=== PATIENT | male | born 1950 | race African-American/Black ===

== ENCOUNTER 2018-07-23 02:51 | Inpatient (IN) | payer MEDICARE, MEDICAID ==
[~2018-07-23] VITALS: Ht 180.3 cm; Wt 68.0 kg
[2018-07-23 08:10] VITALS: BP 123/82
[2018-07-23] MEDS ORDERED: FLOMAX0.4 MG ORAL (09:35)
[2018-07-23] MEDS ORDERED: HYDROCHLOROTH12.5 M2 ORAL (09:36)
[2018-07-23] MEDS ORDERED: LISINOPRIL-HCT1 EACH ORAL (09:36)
[2018-07-23] MEDS ORDERED: Mylanta II UD 30ml ORAL PRN (10:00)
[2018-07-23] MEDS ORDERED: Albuterol/Ipratropium 3ml neb HHN PRN (10:00)
--- NOTE | 2018-07-23 10:06 | Consultation ---
History of Present Illness General Date patient seen: Jul 23, 2018 Time patient seen: 08:00 Chief Complaint: pain R ankle Referring physician: dr Carver Reason for Consultation: inpatient management Present Illness HPI 57 years old male with past medical history significant for hypertension, BPH presented to [facility] as a direct admission from [facility]. Patient came to ED for pain in the left ankle area. Upon evaluation in [place] vital signs were stable ,no fever. Patient exhibited mild leukocytosis with WBC 12 , hemoglobin and hematocrit remain stable ; chest x-ray with no acute cardiopulmonary disease ; EKG with sinus rhythm, no acute ischemic changes ultrasound of the right lower extremity apparently was done on last week and was negatiev fro acute DVT. patient was given dose of Vanco and Zosyn and transferred to [facility] for further management with diagnosis of cellulitis patient by himself unable to remember when the symptoms started he denied trauma or injury to the leg he stated that he may had worn uncomfortable shoe he denies hx of diabetes No ED report from [place] present with papers Allergies: Coded Allergies: No Known Allergies (Unverified , 07/23/18) Medication History Scheduled Hydrochlorothiazide* (Hydrochlorothiazide*), 12.5 MG ORAL DAILY, (Reported) Lisinopril/Hydrochlorothiazide 10-12.5 Mg Tab (Lisinopril-Hctz 10-12.5 Mg Tab), 1 TAB ORAL DAILY, (Reported) Tamsulosin HCl (Flomax), 0.4 MG ORAL DAILY, (Reported) Patient History History Provided By: Patient Healthcare decision maker Resuscitation status Full Code Advanced Directive on File Past Medical/Surgical History Past Medical/Surgical History: (1) BPH (benign prostatic hyperplasia) (2) HTN (hypertension) Review of Systems Constitutional: Reports: no symptoms Eye: Reports: no symptoms ENT: Reports: no symptoms Respiratory: Reports: no symptoms Cardiovascular: Reports: no symptoms, other - HTN Gastrointestinal: Reports: no symptoms Genitourinary: Reports: other - BPH, diff voiding Musculoskeletal: Reports: other - pain R ankle Skin: Reports: see HPI Psychiatric: Reports: no symptoms Neurological: Reports: no symptoms Endocrine: Reports: no symptoms Hematologic/Lymphatic: Reports: no symptoms Physical Exam General Appearance: no apparent distress, alert Lines, tubes and drains: peripheral HEENT: normocephalic, atraumatic, anicteric, mucous membranes moist, PERRL Neck: non-tender, normal alignment, supple Respiratory/Chest: lungs clear, no respiratory distress, no accessory muscle use Cardiovascular/Chest: normal rate, no JVD Abdomen: normal bowel sounds, non tender, soft Extremities: normal range of motion, normal inspection Skin Exam: warm/dry, other - LLE ankle area with erythema, TTP. edema, L ankle ucler with opening blister draining yellowish fluid Neurologic: no motor/sensory deficits, alert, oriented x 3, responsive Musculoskeletal: normal muscle bulk Last 24 Hour Vital Signs Date Time Temp Pulse Resp B/P (MAP) Pulse Ox O2 Delivery O2 Flow Rate FiO2 07/23/18 09:23 Room Air 07/23/18 08:10 97.7 79 21 123/82 (96) 97 97.7 07/23/18 08:06 Room Air Height (Feet): 5 Height (Inches): 11.00 Weight (Pounds): 132 Medications Current Medications Medications (Trade) Dose Ordered Sig/Anjana Route PRN Reason Start Time Stop Time Status Last Admin Dose Admin Piperacillin Sod/ Tazobactam Sod 3.375 gm/Dextrose 110 ml @ 27.5 mls/hr Q8HR IVPB 07/23/18 10:30 07/30/18 10:29 Vancomycin HCl (Vanco rx to dose) 1 ea DAILY PRN MISC Per rx protocol 07/23/18 09:45 08/22/18 09:44 UNV Vancomycin HCl/ Dextrose 250 ml @ 166.667 mls/hr ONCE ONCE IVPB 07/23/18 14:30 07/23/18 15:59 Assessment/Plan Assessment/Plan ASSESSMENT LLE cellulitis L ankle ulcer with blister pain L ankle HTN BPH PLAN OF CARE Med Surg floor Venous duplex bilateral lower extremity IV Vanco and Zosyn culture wound ID eval Wound care per protocol X ray L ankle Pain management PT eval for safe ambulation Blood pressure management with the YANETH Continue Flomax, monitor for voiding DVT prophylaxis check HgA1c ( patient denied hx of diabetes) Supportive care case discussed and evaluated by supervising physician Yesica Hale NP Jul 23, 2018 10:06
[2018-07-23 10:14] LABS: BASOPHILS % (AUTO) 1.6 % (0.0-2.0); HEMATOCRIT 33.6 % (42.0-52.0); HEMOGLOBIN 10.8 G/DL (14.2-18.0); LYMPHOCYTES % (AUTO) 10.3 % (20.0-45.0); MEAN CORPUSCULAR VOLUME 91 FL (80-99); MONOCYTES % (AUTO) 8.6 % (1.0-10.0); NEUTROPHILS % (AUTO) 77.4 % (45.0-75.0); PLATELET COUNT 209 K/UL (150-450); RED BLOOD COUNT 3.68 M/UL (4.70-6.10); WHITE BLOOD COUNT 12.3 K/UL (4.8-10.8)
[2018-07-23 10:30] LABS: ANION GAP 6 mmol/L (5-15); BLOOD UREA NITROGEN 9 mg/dL (7-18); CALCIUM 9.2 MG/DL (8.5-10.1); CARBON DIOXIDE 28 MMOL/L (21-32); CHLORIDE 103 MMOL/L (98-107); POTASSIUM 3.8 MMOL/L (3.5-5.1); SODIUM 137 MMOL/L (136-145)
[2018-07-23] MEDS: Piperacillin/Tazobactam 3.375 GM in D5W 110 ML IVPB SCH ×2 (10:58→21:10)
--- NOTE | 2018-07-23 11:09 | Diagnostic Imaging Report ---
EXAM: XR Left Ankle Complete, 3 or More Views CLINICAL HISTORY: PAIN TECHNIQUE: Frontal, lateral and oblique views of the left ankle. COMPARISON: No relevant prior studies available. FINDINGS: Bones/joints: Unremarkable. No visible displaced ankle fracture or dislocation. Ankle mortise and talar dome appear unremarkable. Mild degenerative joint space loss at the ankle joint. Incidental note of small Achilles tendon enthesophyte and plantar calcaneal bone spur. Soft tissues: Bimalleolar soft tissue swelling. No radiodense foreign bodies. No soft tissue gas lucencies. IMPRESSION: 1. Bimalleolar soft tissue swelling. 2. Mild degenerative changes at the ankle joint.
[2018-07-23 11:45] VITALS: BP 109/64
[2018-07-23] MEDS: Vancomycin 1gm/D5W 275ml IVPB SCH ×2 (13:00)
[2018-07-23] MEDS ORDERED: Vancomycin 1250mg/D5W 250ml IVPB ONE (14:30)
[2018-07-23] MEDS: Norco 5mg/325mg tab ORAL PRN ×2 (15:13→22:31)
[2018-07-23 15:52] VITALS: BP 99/52
--- NOTE | 2018-07-23 16:41 | History & Physical ---
History and Physical History & Physicial Dictated for Int Med-Dr Carver no. [id number]. Tommy Grimaldo MD Jul 23, 2018 16:41
--- NOTE | 2018-07-23 19:45 | History and Physical Report ---
DATE OF ADMISSION: 07/23/2018 CHIEF COMPLAINT: The patient is a 67-year-old male, who presents with chief complaint of left leg pain and swelling. HISTORY OF PRESENT ILLNESS: Began two to three months previously. The patient began to experience left lower leg swelling and pain. The patient presented to [facility] emergency room. The patient was found to have ulcer of the left ankle. The patient also was noted to have erythema and swelling of the left lower extremity. The patient is admitted for cellulitis and ulceration of the left lower extremity. PAST MEDICAL HISTORY: Significant for 1. Chronic low back pain. 2. Hypertension. 3. Benign prostatic hypertrophy. PAST SURGICAL HISTORY: The patient denies. CURRENT MEDICATIONS: 1. Hydrochlorothiazide 12.5 mg one tablet p.o. daily. 2. Lisinopril/hydrochlorothiazide 10/12.5 mg one tablet p.o. daily. 3. Flomax 0.4 mg p.o. daily. ALLERGIES: No known drug allergies. SOCIAL HISTORY: The patient is currently homeless and lives in a skilled nursing. The patient admits to tobacco use. The patient denies alcohol use. REVIEW OF SYSTEMS: CONSTITUTIONAL: The patient denies weight loss or weight gain. The patient denies fevers or chills. HEENT: The patient denies ear or throat pain. The patient denies headache. CARDIOVASCULAR: The patient denies palpitations or chest pain. CHEST: The patient denies wheeze or shortness of breath. ABDOMEN: The patient denies nausea, vomiting, diarrhea, or constipation. GENITOURINARY: The patient denies dysuria or increased frequency of urination. NEUROMUSCULAR: The patient denies seizures or generalized weakness. PHYSICAL EXAMINATION: GENERAL: The patient is thin-appearing male, in no apparent distress. VITAL SIGNS: Temperature 97.7 degrees, respirations 21, pulse 79, and blood pressure 123/82. HEENT: Eyes, pupils equal and responsive to light and accommodation. Extraocular movements are intact. NECK: Supple without lymphadenopathy. CHEST: Lungs are clear to auscultation bilaterally without wheezes or rales. CARDIOVASCULAR: Regular rate. S1 and S2 are normal without murmurs, rubs, or gallops. ABDOMEN: Soft, nontender, nondistended. Positive bowel sounds. No evidence of hepatosplenomegaly. Currently, no rebound or guarding noted. EXTREMITIES: Presence of ulceration in the left ankle with erythema extending from the foot to the mid calf. The ulcer is appears to be a stage II. LABORATORY AND DIAGNOSTIC DATA: WBC 12.3, hemoglobin 10.8, hematocrit 33.6, and platelets 209,000. Sodium 137, potassium 3.8, chloride 103, CO2 20, BUN 9, creatinine 1.0 and glucose 122. ASSESSMENT: This is a 67-year-old male 1. Left lower extremity pain. 2. Left leg cellulitis. 3. Stage II ulcer of the left leg. 4. Chronic low back pain. 5. Hypertension. 6. Benign prostatic hypertrophy. TREATMENT: 1. Left leg pain/cellulitis/stage II ulcer. The patient has been started empirically on intravenous vancomycin and Zosyn. A wound care consultation has been obtained. We will follow recommendations of wound care. 2. Hypertension. Continue lisinopril and hydrochlorothiazide as above. 3. Benign prostatic hypertrophy. Continue Flomax as above. Tommy Grimaldo M.D. DR: ELICIA JOB#: [id number] CC:
[2018-07-23 20:02] VITALS: BP 131/80
[2018-07-23] MEDS: Tamsulosin 0.4mg cap ORAL SCH (21:10)
[2018-07-23] MEDS: Heparin 5000 units/ml inj SUBQ SCH (21:11)
[2018-07-23 23:50] VITALS: BP 100/60
[2018-07-24] MEDS ORDERED: Vancomycin 1gm/D5W 275ml IVPB SCH ×2 (02:00)
[2018-07-24] MEDS: Vancomycin 1gm/D5W 275ml IVPB SCH ×4 (02:29→13:27)
[2018-07-24 04:13] VITALS: BP 129/82
[2018-07-24] MEDS: Piperacillin/Tazobactam 3.375 GM in D5W 110 ML IVPB SCH (06:13)
--- NOTE | 2018-07-24 08:07 | Pulmonology Progress Note ---
Assessment/Plan Assessment/Plan ASSESSMENT LLE cellulitis L ankle ulcer with blister pain L ankle HTN BPH PLAN OF CARE Med Surg floor Venous duplex bilateral lower extremity IV Vanco and Zosyn culture wound ID eval Wound care per protocol X ray L ankle with bimalleolar soft tissue swelling and mild degenerative changes at the ankle joint. Pain management PT eval for safe ambulation Blood pressure management with the YANETH Continue Flomax, monitor for voiding DVT prophylaxis check [id number] stable lipid panel low TSH, check free T4 and T3 Supportive care case discussed and evaluated by supervising physician Subjective Allergies: Coded Allergies: No Known Allergies (Unverified , 07/23/18) Subjective afebrile, leukocytosis resolved c/o pain L ankle Objective Last 24 Hour Vital Signs Date Time Temp Pulse Resp B/P (MAP) Pulse Ox O2 Delivery O2 Flow Rate FiO2 07/24/18 04:13 97.9 79 18 129/82 (98) 100 97.9 07/23/18 23:50 97.7 89 18 100/60 (73) 96 97.7 07/23/18 23:30 98.4 07/23/18 22:31 98.4 07/23/18 22:16 Room Air 07/23/18 20:02 98.4 84 20 131/80 (97) 99 98.4 07/23/18 15:52 97.9 62 20 99/52 (68) 97 97.9 07/23/18 11:45 97.7 77 19 109/64 (79) 97 97.7 07/23/18 09:23 Room Air 07/23/18 08:10 97.7 79 21 123/82 (96) 97 97.7 07/23/18 08:06 Room Air Intake and Output 07/23/18 07/24/18 19:00 07:00 Intake Total 1165.0 ml 385.000 ml Output Total 600 ml 600 ml Balance 565.0 ml -215.000 ml Intake Oral 780 ml IV Total 385.0 ml 385.000 ml Output Urine Total 600 ml 600 ml # Voids 1 2 Objective General Appearance: no apparent distress, alert Lines, tubes and drains: peripheral HEENT: normocephalic, atraumatic, anicteric, mucous membranes moist, PERRL Neck: non-tender, normal alignment, supple Respiratory/Chest: lungs clear, no respiratory distress, no accessory muscle use Cardiovascular/Chest: normal rate, no JVD Abdomen: normal bowel sounds, non tender, soft Extremities: normal range of motion, normal inspection Skin Exam: warm/dry, LLE ankle area with erythema, TTP. edema, ulcer with opening blister draining yellowish fluid Neurologic: no motor/sensory deficits, alert, oriented x 3, responsive Musculoskeletal: normal muscle bulk Laboratory Tests 07/23/18 09:54: White Blood Count 12.3H, Red Blood Count 3.68L, Hemoglobin 10.8L, Hematocrit 33.6L, Mean Corpuscular Volume 91, Mean Corpuscular Hemoglobin 29.5, Mean Corpuscular Hemoglobin Concent 32.3, Red Cell Distribution Width 15.0H, Platelet Count 209, Mean Platelet Volume 7.9, Neutrophils (%) (Auto) 77.4H, Lymphocytes (%) (Auto) 10.3L, Monocytes (%) (Auto) 8.6, Eosinophils (%) (Auto) 2.0, Basophils (%) (Auto) 1.6, Sodium Level 137, Potassium Level 3.8, Chloride Level 103, Carbon Dioxide Level 28, Anion Gap 6, Blood Urea Nitrogen 9, Creatinine 1.0, Estimat Glomerular Filtration Rate > 60, Glucose Level 122H, Calcium Level 9.2 Current Medications Medications (Trade) Dose Ordered Sig/Anjana Route PRN Reason Start Time Stop Time Status Last Admin Dose Admin Acetaminophen (Tylenol) 650 mg Q4H PRN ORAL Mild Pain (Pain Scale 1-3) 07/23/18 10:00 08/22/18 09:59 Acetaminophen/ Hydrocodone Bitart ([place] 5/325) 1 tab Q4H PRN ORAL Moderate Pain (Pain Scale 4-6) 07/23/18 10:45 07/30/18 10:44 07/23/18 22:31 Al Hydroxide/Mg Hydroxide (Mylanta II) 30 ml Q6H PRN ORAL dyspepsia 07/23/18 10:00 08/22/18 09:59 Albuterol/ Ipratropium (Albuterol/ Ipratropium) 3 ml Q4H PRN HHN Shortness of Breath 07/23/18 10:00 07/28/18 09:59 Dextrose (Dextrose 50%) 25 ml STAT PRN IV Hypoglycemia 07/23/18 10:00 08/22/18 09:59 Dextrose (Dextrose 50%) 50 ml STAT PRN IV Hypoglycemia 07/23/18 10:00 08/22/18 09:59 Heparin Sodium (Porcine) (Heparin 5000 units/ml) 5,000 units EVERY 12 HOURS SUBQ 07/23/18 21:00 08/22/18 20:59 07/23/18 21:11 Lisinopril (Zestril) 10 mg DAILY ORAL 07/24/18 09:00 08/23/18 08:59 Piperacillin Sod/ Tazobactam Sod 3.375 gm/Dextrose 110 ml @ 27.5 mls/hr Q8HR IVPB 07/23/18 10:30 07/30/18 10:29 07/24/18 06:13 Tamsulosin HCl (Flomax) 0.4 mg BEDTIME ORAL 07/23/18 21:00 08/22/18 20:59 07/23/18 21:10 Temazepam (Restoril) 15 mg HSPRN PRN ORAL Insomnia 07/23/18 21:00 07/30/18 20:59 Vancomycin HCl (Vanco rx to dose) 1 ea DAILY PRN MISC Per rx protocol 07/23/18 09:45 08/22/18 09:44 Vancomycin HCl 1 gm/Dextrose 275 ml @ 183.708 mls/hr Q12H IVPB 07/23/18 13:00 07/28/18 12:59 07/24/18 02:29 Yesica Hale NP Jul 24, 2018 08:07
[2018-07-24 08:36] LABS: BASOPHILS % (AUTO) 1.1 % (0.0-2.0); EOSINOPHILS % (AUTO) 2.2 % (0.0-3.0); HEMATOCRIT 34.5 % (42.0-52.0); HEMOGLOBIN 11.1 G/DL (14.2-18.0); LYMPHOCYTES % (AUTO) 12.3 % (20.0-45.0); MEAN CORPUSCULAR VOLUME 91 FL (80-99); MONOCYTES % (AUTO) 10.3 % (1.0-10.0); NEUTROPHILS % (AUTO) 74.1 % (45.0-75.0); PLATELET COUNT 231 K/UL (150-450); RED BLOOD COUNT 3.77 M/UL (4.70-6.10); RED CELL DISTRIBUTION WIDTH 14.8 % (11.6-14.8); WHITE BLOOD COUNT 10.1 K/UL (4.8-10.8)
[2018-07-24 09:16] LABS: ALANINE AMINOTRANSFERASE 19 U/L (12-78); ALBUMIN 2.6 G/DL (3.4-5.0); ALBUMIN/GLOBULIN RATIO 0.6 (1.0-2.7); ALKALINE PHOSPHATASE 69 U/L (46-116); ANION GAP 3 mmol/L (5-15); ASPARTATE AMINO TRANSFERASE 11 U/L (15-37); BILIRUBIN,TOTAL 0.5 MG/DL (0.2-1.0); BLOOD UREA NITROGEN 6 mg/dL (7-18); CARBON DIOXIDE 30 MMOL/L (21-32); CHLORIDE 105 MMOL/L (98-107); CHOLESTEROL 113 MG/DL (< 200); HDL CHOLESTEROL 42 MG/DL (40-60); SODIUM 138 MMOL/L (136-145); TRIGLYCERIDES 84 MG/DL (30-150)
[2018-07-24] MEDS ORDERED: Tubing IV Secondary IV ONE (09:35)
[2018-07-24] MEDS ORDERED: NS 275ml ONE (09:35)
[2018-07-24] MEDS: Lisinopril 10mg tab ORAL SCH (10:05)
[2018-07-24] MEDS: Norco 5mg/325mg tab ORAL PRN ×2 (10:05→17:55)
[2018-07-24] MEDS: Heparin 5000 units/ml inj SUBQ SCH ×2 (10:06→20:13)
[2018-07-24 12:00] VITALS: BP 121/80
--- NOTE | 2018-07-24 14:06 | Consultation ---
History of Present Illness General Date patient seen: Jul 24, 2018 Referring physician: dr Carver Reason for Consultation: inpatient management Present Illness HPI 67 y/o M with hx of HTN, BPH, chronic low back pain presents as a direct admission from [place] on 07/23 for pain and swelling in L ankle. Patient found to have WBC 12 and ulcer on L ankle. ID consulted for cellulitis. Patient refers wearing uncomfortable shoes. Patient was started on IV Vanco and Zosyn. Denies trauma/injury to leg Allergies: Coded Allergies: No Known Allergies (Unverified , 07/23/18) Medication History Scheduled Hydrochlorothiazide* (Hydrochlorothiazide*), 12.5 MG ORAL DAILY, (Reported) Lisinopril/Hydrochlorothiazide 10-12.5 Mg Tab (Lisinopril-Hctz 10-12.5 Mg Tab), 1 TAB ORAL DAILY, (Reported) Tamsulosin HCl (Flomax), 0.4 MG ORAL DAILY, (Reported) Patient History Healthcare decision maker Resuscitation status Full Code Advanced Directive on File Patient History Narrative Pmhx: as above Shx: The patient is currently homeless and [facility] a [facility]. The patient admits to tobacco use. The patient denies alcohol use. Fhx: non contributory Review of Systems All Other Systems: negative except mentioned in HPI Physical Exam Physical Exam Narrative GENERAL: The patient is thin-appearing male, in no apparent distress. HEENT: Eyes, pupils equal and responsive to light and accommodation. Extraocular movements are intact. NECK: Supple without lymphadenopathy. CHEST: Lungs are clear to auscultation bilaterally without wheezes or rales. CARDIOVASCULAR: Regular rate. S1 and S2 are normal without murmurs, rubs, or gallops. ABDOMEN: Soft, nontender, nondistended. Positive bowel sounds. No evidence of hepatosplenomegaly. Currently, no rebound or guarding noted. EXTREMITIES: Presence of ulceration in the left ankle with erythema extending from the foot to the mid calf; modedte TTP; +warmth, swelling. The ulcer is appears to be a stage II., purulent discharge; Last 24 Hour Vital Signs Date Time Temp Pulse Resp B/P (MAP) Pulse Ox O2 Delivery O2 Flow Rate FiO2 07/24/18 12:00 97.9 61 19 121/80 (94) 96 97.9 07/24/18 10:05 129/83 07/24/18 09:12 89 20 Room Air 21 07/24/18 09:00 Room Air 07/24/18 04:13 97.9 79 18 129/82 (98) 100 97.9 07/23/18 23:50 97.7 89 18 100/60 (73) 96 97.7 07/23/18 23:30 98.4 07/23/18 22:31 98.4 07/23/18 22:16 Room Air 07/23/18 20:02 98.4 84 20 131/80 (97) 99 98.4 07/23/18 15:52 97.9 62 20 99/52 (68) 97 97.9 Intake and Output 07/23/18 07/24/18 19:00 07:00 Intake Total 1165.0 ml 385.000 ml Output Total 600 ml 600 ml Balance 565.0 ml -215.000 ml Intake Oral 780 ml IV Total 385.0 ml 385.000 ml Output Urine Total 600 ml 600 ml # Voids 1 2 Laboratory Tests Test 07/24/18 07:35 White Blood Count 10.1 K/UL (4.8-10.8) Red Blood Count 3.77 M/UL (4.70-6.10) L Hemoglobin 11.1 G/DL (14.2-18.0) L Hematocrit 34.5 % (42.0-52.0) L Mean Corpuscular Volume 91 FL (80-99) Mean Corpuscular Hemoglobin 29.6 PG (27.0-31.0) Mean Corpuscular Hemoglobin Concent 32.3 G/DL (32.0-36.0) Red Cell Distribution Width 14.8 % (11.6-14.8) Platelet Count 231 K/UL (150-450) Mean Platelet Volume 8.1 FL (6.5-10.1) Neutrophils (%) (Auto) 74.1 % (45.0-75.0) Lymphocytes (%) (Auto) 12.3 % (20.0-45.0) L Monocytes (%) (Auto) 10.3 % (1.0-10.0) H Eosinophils (%) (Auto) 2.2 % (0.0-3.0) Basophils (%) (Auto) 1.1 % (0.0-2.0) Sodium Level 138 MMOL/L (136-145) Potassium Level 4.0 MMOL/L (3.5-5.1) Chloride Level 105 MMOL/L (98-107) Carbon Dioxide Level 30 MMOL/L (21-32) Anion Gap 3 mmol/L (5-15) L Blood Urea Nitrogen 6 mg/dL (7-18) L Creatinine 1.0 MG/DL (0.55-1.30) Estimat Glomerular Filtration Rate > 60 mL/min (>60) Glucose Level 113 MG/DL (74-106) H Hemoglobin A1c 5.7 % (4.3-6.0) Calcium Level 9.0 MG/DL (8.5-10.1) Magnesium Level 2.0 MG/DL (1.8-2.4) Total Bilirubin 0.5 MG/DL (0.2-1.0) Aspartate Amino Transf (AST/SGOT) 11 U/L (15-37) L Alanine Aminotransferase (ALT/SGPT) 19 U/L (12-78) Alkaline Phosphatase 69 U/L (46-116) Total Protein 6.7 G/DL (6.4-8.2) Albumin 2.6 G/DL (3.4-5.0) L Globulin 4.1 g/dL Albumin/Globulin Ratio 0.6 (1.0-2.7) L Triglycerides Level 84 MG/DL (30-150) Cholesterol Level 113 MG/DL (< 200) LDL Cholesterol 51 mg/dL (<100) HDL Cholesterol 42 MG/DL (40-60) Cholesterol/HDL Ratio 2.7 (3.3-4.4) L Prostate Specific Antigen 2.49 ng/mL (0.13-4.0) Thyroid Stimulating Hormone (TSH) 0.337 uiU/mL (0.358-3.740) Height (Feet): 5 Height (Inches): 11.00 Weight (Pounds): 132 Medications Current Medications Medications (Trade) Dose Ordered Sig/Anjana Route PRN Reason Start Time Stop Time Status Last Admin Dose Admin Acetaminophen (Tylenol) 650 mg Q4H PRN ORAL Mild Pain (Pain Scale 1-3) 07/23/18 10:00 08/22/18 09:59 Acetaminophen/ Hydrocodone Bitart ([place] 5/325) 1 tab Q4H PRN ORAL Moderate Pain (Pain Scale 4-6) 07/23/18 10:45 07/30/18 10:44 07/24/18 10:05 Al Hydroxide/Mg Hydroxide (Mylanta II) 30 ml Q6H PRN ORAL dyspepsia 07/23/18 10:00 08/22/18 09:59 Albuterol/ Ipratropium (Albuterol/ Ipratropium) 3 ml Q4H PRN HHN Shortness of Breath 07/23/18 10:00 07/28/18 09:59 Dextrose (Dextrose 50%) 25 ml STAT PRN IV Hypoglycemia 07/23/18 10:00 08/22/18 09:59 Dextrose (Dextrose 50%) 50 ml STAT PRN IV Hypoglycemia 07/23/18 10:00 08/22/18 09:59 Heparin Sodium (Porcine) (Heparin 5000 units/ml) 5,000 units EVERY 12 HOURS SUBQ 07/23/18 21:00 08/22/18 20:59 07/24/18 10:06 Lisinopril (Zestril) 10 mg DAILY ORAL 07/24/18 09:00 08/23/18 08:59 07/24/18 10:05 Piperacillin Sod/ Tazobactam Sod 3.375 gm/Dextrose 110 ml @ 27.5 mls/hr Q8HR IVPB 07/23/18 10:30 07/30/18 10:29 07/24/18 06:13 Tamsulosin HCl (Flomax) 0.4 mg BEDTIME ORAL 07/23/18 21:00 08/22/18 20:59 07/23/18 21:10 Temazepam (Restoril) 15 mg HSPRN PRN ORAL Insomnia 07/23/18 21:00 07/30/18 20:59 Vancomycin HCl (Vanco rx to dose) 1 ea DAILY PRN MISC Per rx protocol 07/23/18 09:45 08/22/18 09:44 Vancomycin HCl 1 gm/Dextrose 275 ml @ 183.708 mls/hr Q12H IVPB 07/23/18 13:00 07/28/18 12:59 07/24/18 13:27 Assessment/Plan Assessment/Plan Abx: IV Vanco 07/23- Zosyn 07/23- Assessment: L ankle ulcer/cellulitis- likely abscess- r/o OM -xray ankle: Bimalleolar soft tissue swelling. Mild degenerative changes at the ankle joint. -wound cx S. aureus MIld leukocytosis, SP -afebrile HTN BPH chronic low back pain Plan: -Continue IV Vancomycin #2 pending S. aureus sensi -d/c Zosyn #2 -MRI L foot/ankle -f/u cx -Monitor CBC/CMP, temperatures -ESR, CRP am -wound care per hospital protocol -Podiatry vania Thank you for this consultation. Will continue to follow along with you. Discussed with EZIO. Brittany Boyce M.D. Jul 24, 2018 14:06
[2018-07-24] MEDS ORDERED: Gadavist 7.5mMol/7.5ml vial IV PRN ×2 (15:45)
[2018-07-24 15:53] VITALS: BP 140/96
--- NOTE | 2018-07-24 16:30 | Internal Med Progress Note ---
Subjective Date of Service: Jul 24, 2018 Physician Name Tommy Grimaldo Attending Physician Checo Carver MD Current Medications Medications (Trade) Dose Ordered Sig/Anjana Route PRN Reason Start Time Stop Time Status Last Admin Dose Admin Acetaminophen (Tylenol) 650 mg Q4H PRN ORAL Mild Pain (Pain Scale 1-3) 07/23/18 10:00 08/22/18 09:59 Acetaminophen/ Hydrocodone Bitart ([place] 5/325) 1 tab Q4H PRN ORAL Moderate Pain (Pain Scale 4-6) 07/23/18 10:45 07/30/18 10:44 07/24/18 10:05 Al Hydroxide/Mg Hydroxide (Mylanta II) 30 ml Q6H PRN ORAL dyspepsia 07/23/18 10:00 08/22/18 09:59 Albuterol/ Ipratropium (Albuterol/ Ipratropium) 3 ml Q4H PRN HHN Shortness of Breath 07/23/18 10:00 07/28/18 09:59 Dextrose (Dextrose 50%) 25 ml STAT PRN IV Hypoglycemia 07/23/18 10:00 08/22/18 09:59 Dextrose (Dextrose 50%) 50 ml STAT PRN IV Hypoglycemia 07/23/18 10:00 08/22/18 09:59 Gadobutrol (Gadavist) 7.5 mmol NOW PRN IV Radiology Procedure 07/24/18 15:45 07/26/18 15:44 Gadobutrol (Gadavist) 7.5 mmol NOW PRN IV Radiology Procedure 07/24/18 15:45 07/26/18 15:44 Heparin Sodium (Porcine) (Heparin 5000 units/ml) 5,000 units EVERY 12 HOURS SUBQ 07/23/18 21:00 08/22/18 20:59 07/24/18 10:06 Lisinopril (Zestril) 10 mg DAILY ORAL 07/24/18 09:00 08/23/18 08:59 07/24/18 10:05 Tamsulosin HCl (Flomax) 0.4 mg BEDTIME ORAL 07/23/18 21:00 08/22/18 20:59 07/23/18 21:10 Temazepam (Restoril) 15 mg HSPRN PRN ORAL Insomnia 07/23/18 21:00 07/30/18 20:59 Vancomycin HCl (Vanco rx to dose) 1 ea DAILY PRN MISC Per rx protocol 07/23/18 09:45 08/22/18 09:44 Vancomycin HCl 1 gm/Dextrose 275 ml @ 183.708 mls/hr Q12H IVPB 07/23/18 13:00 07/28/18 12:59 07/24/18 13:27 Allergies: Coded Allergies: No Known Allergies (Unverified , 07/23/18) ROS Limited/Unobtainable: No Constitutional: Reports: no symptoms HEENT: Reports: no symptoms Cardiovascular: Reports: no symptoms Respiratory: Reports: no symptoms Gastrointestinal/Abdominal: Reports: no symptoms Genitourinary: Reports: no symptoms Neurologic/Psychiatric: Reports: no symptoms Subjective 67 YO M with left leg pain. Now left leg cellulitis and stage II ulcer left ankle. Cover for Int Prasanth-Dr Carver Objective Last Vital Signs Date Time Temp Pulse Resp B/P (MAP) Pulse Ox O2 Delivery O2 Flow Rate FiO2 07/24/18 15:53 97.8 80 18 140/96 (111) 99 97.8 07/24/18 09:12 Room Air 21 General Appearance: WD/WN, no apparent distress, alert EENT: PERRL/EOMI, normal ENT inspection, TMs normal Neck: non-tender, normal alignment, supple, normal inspection Cardiovascular: normal peripheral pulses, normal rate, regularly irregular, no gallop/murmur, no JVD Respiratory/Chest: chest wall non-tender, lungs clear, normal breath sounds, no respiratory distress, no accessory muscle use Abdomen: normal bowel sounds, non tender, soft, no organomegaly, no mass Extremities: normal range of motion, non-tender Neurologic: computing tutor II-XII grossly normal, no motor/sensory deficits Skin: warm/dry, other - erythema left lower leg with ulcer ankle Laboratory Tests Test 07/24/18 07:35 White Blood Count 10.1 K/UL (4.8-10.8) Red Blood Count 3.77 M/UL (4.70-6.10) L Hemoglobin 11.1 G/DL (14.2-18.0) L Hematocrit 34.5 % (42.0-52.0) L Mean Corpuscular Volume 91 FL (80-99) Mean Corpuscular Hemoglobin 29.6 PG (27.0-31.0) Mean Corpuscular Hemoglobin Concent 32.3 G/DL (32.0-36.0) Red Cell Distribution Width 14.8 % (11.6-14.8) Platelet Count 231 K/UL (150-450) Mean Platelet Volume 8.1 FL (6.5-10.1) Neutrophils (%) (Auto) 74.1 % (45.0-75.0) Lymphocytes (%) (Auto) 12.3 % (20.0-45.0) L Monocytes (%) (Auto) 10.3 % (1.0-10.0) H Eosinophils (%) (Auto) 2.2 % (0.0-3.0) Basophils (%) (Auto) 1.1 % (0.0-2.0) Sodium Level 138 MMOL/L (136-145) Potassium Level 4.0 MMOL/L (3.5-5.1) Chloride Level 105 MMOL/L (98-107) Carbon Dioxide Level 30 MMOL/L (21-32) Anion Gap 3 mmol/L (5-15) L Blood Urea Nitrogen 6 mg/dL (7-18) L Creatinine 1.0 MG/DL (0.55-1.30) Estimat Glomerular Filtration Rate > 60 mL/min (>60) Glucose Level 113 MG/DL (74-106) H Hemoglobin A1c 5.7 % (4.3-6.0) Calcium Level 9.0 MG/DL (8.5-10.1) Magnesium Level 2.0 MG/DL (1.8-2.4) Total Bilirubin 0.5 MG/DL (0.2-1.0) Aspartate Amino Transf (AST/SGOT) 11 U/L (15-37) L Alanine Aminotransferase (ALT/SGPT) 19 U/L (12-78) Alkaline Phosphatase 69 U/L (46-116) Total Protein 6.7 G/DL (6.4-8.2) Albumin 2.6 G/DL (3.4-5.0) L Globulin 4.1 g/dL Albumin/Globulin Ratio 0.6 (1.0-2.7) L Triglycerides Level 84 MG/DL (30-150) Cholesterol Level 113 MG/DL (< 200) LDL Cholesterol 51 mg/dL (<100) HDL Cholesterol 42 MG/DL (40-60) Cholesterol/HDL Ratio 2.7 (3.3-4.4) L Prostate Specific Antigen 2.49 ng/mL (0.13-4.0) Thyroid Stimulating Hormone (TSH) 0.337 uiU/mL (0.358-3.740) Microbiology Date/Time Source Procedure Growth Status 07/23/18 10:00 Nasal Nares Nasopharyngeal Culture - Preliminary Resulted 07/23/18 10:00 Foot Left Gram Stain - Final Resulted 07/23/18 10:00 Wound Culture - Preliminary Staphylococcus Aureus Resulted Intake and Output 07/23/18 07/24/18 19:00 07:00 Intake Total 1165.0 ml 385.000 ml Output Total 600 ml 600 ml Balance 565.0 ml -215.000 ml Intake Oral 780 ml IV Total 385.0 ml 385.000 ml Output Urine Total 600 ml 600 ml # Voids 1 2 Assessment/Plan Problem List: (1) Pressure ulcer, stage II (2) HTN (hypertension) Assessment & Plan: Continue lisinopril (3) BPH (benign prostatic hyperplasia) Assessment & Plan: Continue flomax (4) Cellulitis Assessment & Plan: left leg. Continue vanco; D/C zosyn per ID Status: progressing Tommy Grimaldo MD Jul 24, 2018 16:30
[2018-07-24 20:00] VITALS: BP 142/90
[2018-07-24] MEDS: Tamsulosin 0.4mg cap ORAL SCH (20:11)
[2018-07-24 23:38] VITALS: BP 131/79
[2018-07-25] MEDS: Vancomycin 1gm/D5W 275ml IVPB SCH ×6 (02:11→18:24)
[2018-07-25 04:00] VITALS: BP 148/83
[2018-07-25 04:14] LABS: BASOPHILS % (AUTO) 0.9 % (0.0-2.0); EOSINOPHILS % (AUTO) 1.9 % (0.0-3.0); HEMATOCRIT 32.5 % (42.0-52.0); HEMOGLOBIN 10.6 G/DL (14.2-18.0); LYMPHOCYTES % (AUTO) 21.9 % (20.0-45.0); MEAN CORPUSCULAR VOLUME 91 FL (80-99); MONOCYTES % (AUTO) 8.6 % (1.0-10.0); NEUTROPHILS % (AUTO) 66.7 % (45.0-75.0); PLATELET COUNT 258 K/UL (150-450); RED BLOOD COUNT 3.58 M/UL (4.70-6.10); RED CELL DISTRIBUTION WIDTH 14.2 % (11.6-14.8); WHITE BLOOD COUNT 10.5 K/UL (4.8-10.8)
[2018-07-25 04:42] LABS: ANION GAP 7 mmol/L (5-15); BLOOD UREA NITROGEN 10 mg/dL (7-18); CALCIUM 9.1 MG/DL (8.5-10.1); CARBON DIOXIDE 27 MMOL/L (21-32); CHLORIDE 103 MMOL/L (98-107); SODIUM 137 MMOL/L (136-145)
--- NOTE | 2018-07-25 07:45 | Consultation ---
Consult Note Assessment/Plan A/ 1) High suspicion of osteo left ankle 2) Abscess left ankle 3) Cellulitis left ankle 4) Pain left ankle P/ 1) Extensive chart review - MRI pending. changed from routine to stat 2) Cont wound care 3) Cont abx per ID 4) Will likely need I&D pending results of MRI 5) Will follow Thank you Janusz Saldaña DPM Jul 25, 2018 07:45
[2018-07-25 08:00] VITALS: BP 145/84
[2018-07-25] MEDS: Lisinopril 10mg tab ORAL SCH (08:27)
[2018-07-25] MEDS: Norco 5mg/325mg tab ORAL PRN ×2 (08:28→18:23)
[2018-07-25] MEDS: Heparin 5000 units/ml inj SUBQ SCH ×2 (08:34→21:28)
--- NOTE | 2018-07-25 10:28 | Infectious Diseases Prog Note ---
Assessment/Plan Assessment/Plan Abx: IV Vanco 07/23- Zosyn 07/23- Assessment: L ankle ulcer/cellulitis- likely abscess- r/o OM -xray ankle: Bimalleolar soft tissue swelling. Mild degenerative changes at the ankle joint. -wound cx MRSA Mild leukocytosis, SP -afebrile HTN BPH chronic low back pain Plan: -Continue IV Vancomycin #3 -d/c Zosyn #2 -f/u MRI L foot/ankle -f/u cx -Monitor CBC/CMP, temperatures -ESR, CRP am -wound care per hospital protocol -Podiatry eval Thank you for this consultation. Will continue to follow along with you Subjective Allergies: Coded Allergies: No Known Allergies (Unverified , 07/23/18) Subjective No acute events Afebrile Pain controlled Objective Vital Signs Last 24 Hour Vital Signs Date Time Temp Pulse Resp B/P (MAP) Pulse Ox O2 Delivery O2 Flow Rate FiO2 07/25/18 08:27 145/84 07/25/18 08:00 97.6 83 20 145/84 (104) 97 97.6 07/25/18 04:00 99.3 79 19 148/83 (104) 97 99.3 07/24/18 23:38 98.8 93 17 131/79 (96) 97 98.8 07/24/18 21:32 85 16 Room Air 21 07/24/18 21:00 Room Air 07/24/18 20:00 99.7 90 19 142/90 (107) 97 99.7 07/24/18 15:53 97.8 80 18 140/96 (111) 99 97.8 07/24/18 12:00 97.9 61 19 121/80 (94) 96 97.9 Height (Feet): 5 Height (Inches): 11.00 Weight (Pounds): 132 Objective GENERAL: NAD, Alert HEENT: NCAT, MMM, EOMI CHEST: Lungs are clear to auscultation bilaterally without wheezes or rales. CARDIOVASCULAR: Regular rate. S1 and S2 are normal without murmurs, rubs, or gallops. ABDOMEN: Soft, nontender, nondistended. Positive bowel sounds. No evidence of hepatosplenomegaly. Currently, no rebound or guarding noted. EXTREMITIES: Presence of ulceration in the left ankle with erythema extending from the foot to the mid calf; modedte TTP; +warmth, swelling. The ulcer is appears to be a stage II., purulent discharge Microbiology Date/Time Source Procedure Growth Status 07/23/18 10:00 Nasal Nares Nasopharyngeal Culture - Preliminary Resulted 07/23/18 10:00 Rectum VRE Culture - Final NO VANCOMYCIN RESISTANT ENTEROCOCCUS ... Complete 07/23/18 10:00 Foot Left Gram Stain - Final Complete 07/23/18 10:00 Wound Culture - Final Staphylococcus Aureus - Mrsa Complete Laboratory Tests Test 07/25/18 00:18 07/25/18 04:00 Vancomycin Level Trough 10.1 ug/mL (5.0-12.0) White Blood Count 10.5 K/UL (4.8-10.8) Red Blood Count 3.58 M/UL (4.70-6.10) L Hemoglobin 10.6 G/DL (14.2-18.0) L Hematocrit 32.5 % (42.0-52.0) L Mean Corpuscular Volume 91 FL (80-99) Mean Corpuscular Hemoglobin 29.6 PG (27.0-31.0) Mean Corpuscular Hemoglobin Concent 32.7 G/DL (32.0-36.0) Red Cell Distribution Width 14.2 % (11.6-14.8) Platelet Count 258 K/UL (150-450) Mean Platelet Volume 6.8 FL (6.5-10.1) Neutrophils (%) (Auto) 66.7 % (45.0-75.0) Lymphocytes (%) (Auto) 21.9 % (20.0-45.0) Monocytes (%) (Auto) 8.6 % (1.0-10.0) Eosinophils (%) (Auto) 1.9 % (0.0-3.0) Basophils (%) (Auto) 0.9 % (0.0-2.0) Erythrocyte Sedimentation Rate 110 MM/HR (0-20) H Sodium Level 137 MMOL/L (136-145) Potassium Level 4.0 MMOL/L (3.5-5.1) Chloride Level 103 MMOL/L (98-107) Carbon Dioxide Level 27 MMOL/L (21-32) Anion Gap 7 mmol/L (5-15) Blood Urea Nitrogen 10 mg/dL (7-18) Creatinine 1.0 MG/DL (0.55-1.30) Estimat Glomerular Filtration Rate > 60 mL/min (>60) Glucose Level 96 MG/DL (74-106) Calcium Level 9.1 MG/DL (8.5-10.1) C-Reactive Protein, Quantitative 31.1 mg/dL (0.00-0.90) H Free Thyroxine 1.16 NG/DL (0.76-1.46) Free Triiodothyronine 1.6 pg/mL (2.3-4.2) L Current Medications Medications (Trade) Dose Ordered Sig/Anjana Route PRN Reason Start Time Stop Time Status Last Admin Dose Admin Acetaminophen (Tylenol) 650 mg Q4H PRN ORAL Mild Pain (Pain Scale 1-3) 07/23/18 10:00 08/22/18 09:59 Acetaminophen/ Hydrocodone Bitart ([place] 5/325) 1 tab Q4H PRN ORAL Moderate Pain (Pain Scale 4-6) 07/23/18 10:45 07/30/18 10:44 07/25/18 08:28 Al Hydroxide/Mg Hydroxide (Mylanta II) 30 ml Q6H PRN ORAL dyspepsia 07/23/18 10:00 08/22/18 09:59 Albuterol/ Ipratropium (Albuterol/ Ipratropium) 3 ml Q4H PRN HHN Shortness of Breath 07/23/18 10:00 07/28/18 09:59 Dextrose (Dextrose 50%) 25 ml STAT PRN IV Hypoglycemia 07/23/18 10:00 08/22/18 09:59 Dextrose (Dextrose 50%) 50 ml STAT PRN IV Hypoglycemia 07/23/18 10:00 08/22/18 09:59 Gadobutrol (Gadavist) 7.5 mmol NOW PRN IV Radiology Procedure 07/24/18 15:45 07/26/18 15:44 Gadobutrol (Gadavist) 7.5 mmol NOW PRN IV Radiology Procedure 07/24/18 15:45 07/26/18 15:44 Heparin Sodium (Porcine) (Heparin 5000 units/ml) 5,000 units EVERY 12 HOURS SUBQ 07/23/18 21:00 08/22/18 20:59 07/25/18 08:34 Lisinopril (Zestril) 10 mg DAILY ORAL 07/24/18 09:00 08/23/18 08:59 07/25/18 08:27 Mupirocin (Bactroban Oint) 1 applic THREE TIMES A DAY TOPIC 07/24/18 18:30 07/29/18 18:29 07/25/18 08:28 Tamsulosin HCl (Flomax) 0.4 mg BEDTIME ORAL 07/23/18 21:00 08/22/18 20:59 07/24/18 20:11 Temazepam (Restoril) 15 mg HSPRN PRN ORAL Insomnia 07/23/18 21:00 07/30/18 20:59 Vancomycin HCl (Vanco rx to dose) 1 ea DAILY PRN MISC Per rx protocol 07/23/18 09:45 08/22/18 09:44 Vancomycin HCl 1 gm/Dextrose 275 ml @ 183.708 mls/hr Q8H IVPB 07/25/18 02:00 07/30/18 01:59 07/25/18 02:11 Be Israel MD Jul 25, 2018 10:28
--- NOTE | 2018-07-25 12:00 | Consultation ---
DATE OF CONSULTATION: 07/25/2018 CONSULTING PHYSICIAN: Janusz Gibson D.P.M. REQUESTING PHYSICIAN: Tommy Grimaldo M.D. REASON FOR CONSULTATION: Cellulitis, possible osteomyelitis of the left ankle. HISTORY OF PRESENT ILLNESS: The patient is a 67-year-old male, who was admitted to [facility] on July 23, 2018, for the above reasons. The patient states that he feels he might had a bug bite about six to seven days ago with increasing swelling and pain and he sought emergent care. The patient denies any fevers, chills, nausea, or vomiting. He has attempted self-care, which was unsuccessful. PAST MEDICAL HISTORY: Significant for hypertension, benign prostatic hypertrophy, and chronic low back pain. ALLERGIES: No known drug allergies. MEDICATIONS: Per MAR. Currently include vancomycin and Bactroban ointment on the wound. SOCIAL HISTORY: Noncontributory. FAMILY HISTORY: Noncontributory. REVIEW OF SYSTEMS: HEENT: The patient denies any headaches, blurred vision, or ringing in the ears. CARDIORESPIRATORY: The patient denies any chest pain or shortness of breath. GENITOURINARY: The patient denies any urgency, frequency, burning upon urination, or hematuria. GASTROINTESTINAL: The patient denies any constipation, diarrhea, or blood in the stool. PHYSICAL EXAMINATION: EXTREMITIES: Lower extremity physical exam, vascular, palpable pedal pulses noted bilaterally. Left lower extremity is warmer than the right. There is 2+ pitting edema noted on the left lower extremity. No edema on the right. No cyanosis is noted bilateral. DERMATOLOGICAL: There is a full-thickness ulceration noted on the anterior aspect of the left ankle, appears fluctuant. There is purulence noted from the site. No malodor. SKIN: Hyperpigmented from cellulitis. Skin is indurated. MUSCULOSKELETAL: A 5/5 muscle strength is noted in anterior, lateral, and posterior muscle groups of bilateral lower extremities. No gross deformities are noted. NEUROLOGICAL: Protective thresholds intact. LABORATORY DATA: White blood cell count is 10.5, down from his admission of 12.3, hemoglobin and hematocrit is 10.6 and 32.5, and platelet count is 258. Sedimentation rate is 110. Potassium is 4.0, BUN is 10, creatinine is 1.0, hemoglobin A1c is 5.7, and glucose is 96. C-reactive protein is 31.1. Albumin is 2.6. IMAGING: Left ankle x-ray shows soft tissue swelling, mild degenerative changes of the ankle joint, but no soft tissue gas or lucencies. MRI is pending. ASSESSMENT: 1. High suspicion of osteomyelitis of the left ankle. 2. Abscess, left ankle. 3. Cellulitis, left ankle. 4. Pain associated with infection of the left ankle. PLAN: 1. Extensive chart review was performed. MRI is pending. Changed from routine to stat. 2. Continue wound care. 3. Continue antibiotics per Infectious Disease. 4. We will likely need incision and drainage, pending results of the MRI. 5. We will follow. Thank you for the courtesy of this consultation, Dr. Grimaldo. Janusz Gibson D.P.M. DR: VERONIQUE JOB#: [id number] CC:
--- NOTE | 2018-07-25 12:30 | Consultation ---
History of Present Illness General Date patient seen: Jul 25, 2018 Referring physician: dr Carver Reason for Consultation: inpatient management Present Illness HPI 67-year-old male, who presents with chief complaint of left leg pain and swelling. The pt stated that he does not want to go to a [facility]. the pt was illogical and perseverated that his foot would heal and he wont need more care Allergies: Coded Allergies: No Known Allergies (Unverified , 07/23/18) Medication History Scheduled Hydrochlorothiazide* (Hydrochlorothiazide*), 12.5 MG ORAL DAILY, (Reported) Lisinopril/Hydrochlorothiazide 10-12.5 Mg Tab (Lisinopril-Hctz 10-12.5 Mg Tab), 1 TAB ORAL DAILY, (Reported) Tamsulosin HCl (Flomax), 0.4 MG ORAL DAILY, (Reported) Patient History History Provided By: Patient, Medical Record, PMD Healthcare decision maker Resuscitation status Full Code Advanced Directive on File Review of Systems Psychiatric: Reports: prior hx, emotional problems Physical Exam General Appearance: no apparent distress, alert Neurologic: alert, depressed affect Last 24 Hour Vital Signs Date Time Temp Pulse Resp B/P (MAP) Pulse Ox O2 Delivery O2 Flow Rate FiO2 07/25/18 09:00 Room Air 07/25/18 08:27 145/84 07/25/18 08:00 97.6 83 20 145/84 (104) 97 97.6 07/25/18 04:00 99.3 79 19 148/83 (104) 97 99.3 07/24/18 23:38 98.8 93 17 131/79 (96) 97 98.8 07/24/18 21:32 85 16 Room Air 21 07/24/18 21:00 Room Air 07/24/18 20:00 99.7 90 19 142/90 (107) 97 99.7 07/24/18 15:53 97.8 80 18 140/96 (111) 99 97.8 Intake and Output 07/24/18 07/25/18 19:00 07:00 Intake Total 847.416 ml 635.000 ml Output Total 500 ml 1000 ml Balance 347.416 ml -365.000 ml Intake Oral 480 ml 360 ml IV Total 367.416 ml 275.000 ml Output Urine Total 500 ml 1000 ml # Voids 9 Laboratory Tests Test 07/25/18 00:18 07/25/18 04:00 Vancomycin Level Trough 10.1 ug/mL (5.0-12.0) White Blood Count 10.5 K/UL (4.8-10.8) Red Blood Count 3.58 M/UL (4.70-6.10) L Hemoglobin 10.6 G/DL (14.2-18.0) L Hematocrit 32.5 % (42.0-52.0) L Mean Corpuscular Volume 91 FL (80-99) Mean Corpuscular Hemoglobin 29.6 PG (27.0-31.0) Mean Corpuscular Hemoglobin Concent 32.7 G/DL (32.0-36.0) Red Cell Distribution Width 14.2 % (11.6-14.8) Platelet Count 258 K/UL (150-450) Mean Platelet Volume 6.8 FL (6.5-10.1) Neutrophils (%) (Auto) 66.7 % (45.0-75.0) Lymphocytes (%) (Auto) 21.9 % (20.0-45.0) Monocytes (%) (Auto) 8.6 % (1.0-10.0) Eosinophils (%) (Auto) 1.9 % (0.0-3.0) Basophils (%) (Auto) 0.9 % (0.0-2.0) Erythrocyte Sedimentation Rate 110 MM/HR (0-20) H Sodium Level 137 MMOL/L (136-145) Potassium Level 4.0 MMOL/L (3.5-5.1) Chloride Level 103 MMOL/L (98-107) Carbon Dioxide Level 27 MMOL/L (21-32) Anion Gap 7 mmol/L (5-15) Blood Urea Nitrogen 10 mg/dL (7-18) Creatinine 1.0 MG/DL (0.55-1.30) Estimat Glomerular Filtration Rate > 60 mL/min (>60) Glucose Level 96 MG/DL (74-106) Calcium Level 9.1 MG/DL (8.5-10.1) C-Reactive Protein, Quantitative 31.1 mg/dL (0.00-0.90) H Free Thyroxine 1.16 NG/DL (0.76-1.46) Free Triiodothyronine 1.6 pg/mL (2.3-4.2) L Height (Feet): 5 Height (Inches): 11.00 Weight (Pounds): 132 Medications Current Medications Medications (Trade) Dose Ordered Sig/Anjana Route PRN Reason Start Time Stop Time Status Last Admin Dose Admin Acetaminophen (Tylenol) 650 mg Q4H PRN ORAL Mild Pain (Pain Scale 1-3) 07/23/18 10:00 08/22/18 09:59 Acetaminophen/ Hydrocodone Bitart ([place] 5/325) 1 tab Q4H PRN ORAL Moderate Pain (Pain Scale 4-6) 07/23/18 10:45 07/30/18 10:44 07/25/18 08:28 Al Hydroxide/Mg Hydroxide (Mylanta II) 30 ml Q6H PRN ORAL dyspepsia 07/23/18 10:00 08/22/18 09:59 Albuterol/ Ipratropium (Albuterol/ Ipratropium) 3 ml Q4H PRN HHN Shortness of Breath 07/23/18 10:00 07/28/18 09:59 Dextrose (Dextrose 50%) 25 ml STAT PRN IV Hypoglycemia 07/23/18 10:00 08/22/18 09:59 Dextrose (Dextrose 50%) 50 ml STAT PRN IV Hypoglycemia 07/23/18 10:00 08/22/18 09:59 Gadobutrol (Gadavist) 7.5 mmol NOW PRN IV Radiology Procedure 07/24/18 15:45 07/26/18 15:44 Gadobutrol (Gadavist) 7.5 mmol NOW PRN IV Radiology Procedure 07/24/18 15:45 07/26/18 15:44 Heparin Sodium (Porcine) (Heparin 5000 units/ml) 5,000 units EVERY 12 HOURS SUBQ 07/23/18 21:00 08/22/18 20:59 07/25/18 08:34 Lisinopril (Zestril) 10 mg DAILY ORAL 07/24/18 09:00 08/23/18 08:59 07/25/18 08:27 Mupirocin (Bactroban Oint) 1 applic THREE TIMES A DAY TOPIC 07/24/18 18:30 07/29/18 18:29 07/25/18 08:28 Tamsulosin HCl (Flomax) 0.4 mg BEDTIME ORAL 07/23/18 21:00 10/2/18 20:59 07/24/18 20:11 Temazepam (Restoril) 15 mg HSPRN PRN ORAL Insomnia 07/23/18 21:00 07/30/18 20:59 Vancomycin HCl (Vanco rx to dose) 1 ea DAILY PRN MISC Per rx protocol 07/23/18 09:45 08/22/18 09:44 Vancomycin HCl 1 gm/Dextrose 275 ml @ 183.708 mls/hr Q8H IVPB 07/25/18 02:00 07/30/18 01:59 07/25/18 02:11 Assessment/Plan Status: stable Assessment/Plan depressive d/o by hx the pt refuses placement will attempt to reeval Andres Coffey MD Jul 25, 2018 12:30
--- NOTE | 2018-07-25 13:54 | Pulmonology Progress Note ---
Assessment/Plan Problems: (1) HTN (hypertension) (2) BPH (benign prostatic hyperplasia) (3) Cellulitis (4) Pressure ulcer, stage II Assessment/Plan wound care iv abx check cultures symptomatic treatment check electrolytes Subjective ROS Limited/Unobtainable: No Constitutional: Reports: no symptoms HEENT: Repors: no symptoms Respiratory: Reports: no symptoms Allergies: Coded Allergies: No Known Allergies (Unverified , 07/23/18) Objective Last 24 Hour Vital Signs Date Time Temp Pulse Resp B/P (MAP) Pulse Ox O2 Delivery O2 Flow Rate FiO2 07/25/18 09:00 Room Air 07/25/18 08:27 145/84 07/25/18 08:00 97.6 83 20 145/84 (104) 97 97.6 07/25/18 04:00 99.3 79 19 148/83 (104) 97 99.3 07/24/18 23:38 98.8 93 17 131/79 (96) 97 98.8 07/24/18 21:32 85 16 Room Air 21 07/24/18 21:00 Room Air 07/24/18 20:00 99.7 90 19 142/90 (107) 97 99.7 07/24/18 15:53 97.8 80 18 140/96 (111) 99 97.8 Intake and Output 07/24/18 07/25/18 19:00 07:00 Intake Total 847.416 ml 635.000 ml Output Total 500 ml 1000 ml Balance 347.416 ml -365.000 ml Intake Oral 480 ml 360 ml IV Total 367.416 ml 275.000 ml Output Urine Total 500 ml 1000 ml # Voids 9 General Appearance: WD/WN HEENT: normocephalic, atraumatic Respiratory/Chest: chest wall non-tender, lungs clear Cardiovascular: normal peripheral pulses, normal rate Abdomen: normal bowel sounds, soft, non tender Genitourinary: normal external genitalia Extremities: no clubbing Skin: no rash Microbiology Date/Time Source Procedure Growth Status 07/23/18 10:00 Nasal Nares Nasopharyngeal Culture - Preliminary Resulted 07/23/18 10:00 Nasal Nares MRSA Culture - Final NO METHICILLIN RESISTANT STAPH AUREUS... Complete 07/23/18 10:00 Rectum VRE Culture - Final NO VANCOMYCIN RESISTANT ENTEROCOCCUS ... Complete 07/23/18 10:00 Foot Left Gram Stain - Final Complete 07/23/18 10:00 Wound Culture - Final Staphylococcus Aureus - Mrsa Complete Laboratory Tests 07/25/18 00:18: Vancomycin Level Trough 10.1 07/25/18 04:00: White Blood Count 10.5, Red Blood Count 3.58L, Hemoglobin 10.6L, Hematocrit 32.5L, Mean Corpuscular Volume 91, Mean Corpuscular Hemoglobin 29.6, Mean Corpuscular Hemoglobin Concent 32.7, Red Cell Distribution Width 14.2, Platelet Count 258, Mean Platelet Volume 6.8, Neutrophils (%) (Auto) 66.7, Lymphocytes (% ) (Auto) 21.9, Monocytes (%) (Auto) 8.6, Eosinophils (%) (Auto) 1.9, Basophils ( %) (Auto) 0.9, Erythrocyte Sedimentation Rate 110H, Sodium Level 137, Potassium Level 4.0, Chloride Level 103, Carbon Dioxide Level 27, Anion Gap 7, Blood Urea Nitrogen 10, Creatinine 1.0, Estimat Glomerular Filtration Rate > 60, Glucose Level 96, Calcium Level 9.1, C-Reactive Protein, Quantitative 31.1H, Free Thyroxine 1.16, Free Triiodothyronine 1.6L Current Medications Medications (Trade) Dose Ordered Sig/Anjana Route PRN Reason Start Time Stop Time Status Last Admin Dose Admin Acetaminophen (Tylenol) 650 mg Q4H PRN ORAL Mild Pain (Pain Scale 1-3) 07/23/18 10:00 08/22/18 09:59 Acetaminophen/ Hydrocodone Bitart ([place] 5/325) 1 tab Q4H PRN ORAL Moderate Pain (Pain Scale 4-6) 07/23/18 10:45 07/30/18 10:44 07/25/18 08:28 Al Hydroxide/Mg Hydroxide (Mylanta II) 30 ml Q6H PRN ORAL dyspepsia 07/23/18 10:00 08/22/18 09:59 Albuterol/ Ipratropium (Albuterol/ Ipratropium) 3 ml Q4H PRN HHN Shortness of Breath 07/23/18 10:00 07/28/18 09:59 Dextrose (Dextrose 50%) 25 ml STAT PRN IV Hypoglycemia 07/23/18 10:00 08/22/18 09:59 Dextrose (Dextrose 50%) 50 ml STAT PRN IV Hypoglycemia 07/23/18 10:00 08/22/18 09:59 Gadobutrol (Gadavist) 7.5 mmol NOW PRN IV Radiology Procedure 07/24/18 15:45 07/26/18 15:44 Gadobutrol (Gadavist) 7.5 mmol NOW PRN IV Radiology Procedure 07/24/18 15:45 07/26/18 15:44 Heparin Sodium (Porcine) (Heparin 5000 units/ml) 5,000 units EVERY 12 HOURS SUBQ 07/23/18 21:00 08/22/18 20:59 07/25/18 08:34 Lisinopril (Zestril) 10 mg DAILY ORAL 07/24/18 09:00 08/23/18 08:59 07/25/18 08:27 Mupirocin (Bactroban Oint) 1 applic THREE TIMES A DAY TOPIC 07/24/18 18:30 07/29/18 18:29 07/25/18 12:41 Tamsulosin HCl (Flomax) 0.4 mg BEDTIME ORAL 07/23/18 21:00 08/22/18 20:59 07/24/18 20:11 Temazepam (Restoril) 15 mg HSPRN PRN ORAL Insomnia 07/23/18 21:00 07/30/18 20:59 Vancomycin HCl (Vanco rx to dose) 1 ea DAILY PRN MISC Per rx protocol 07/23/18 09:45 08/22/18 09:44 Vancomycin HCl 1 gm/Dextrose 275 ml @ 183.708 mls/hr Q8H IVPB 07/25/18 02:00 07/30/18 01:59 07/25/18 12:40 Katerina Guadarrama MD Jul 25, 2018 13:53
--- NOTE | 2018-07-25 14:43 | Diagnostic Imaging Report ---
Indication: Left foot cellulitis Technique: Sagittal, axial, coronal T1 FSE and FSE STIR images of the forefoot. Precontrast axial T1 fat saturated, postcontrast axial and coronal T1 fat saturated images of the forefoot Comparison: none Findings: There is diffuse edema of the dorsum of the foot. No definite focal fluid collections. There is mild enhancement of the edematous soft tissues. No definite focal nonenhancing areas are demonstrated. No focal T1 signal collections are demonstrated. Normal marrow signal Impression: Negative for evidence of osteomyelitis Diffuse dorsal soft tissue edema. This could be on the basis of cellulitis or vasogenic edema. No evidence of drainable abscess Findings discussed by phone with Dr. Gibson at the time of interpretation
[2018-07-25 16:00] VITALS: BP 150/103
--- NOTE | 2018-07-25 16:42 | Diagnostic Imaging Report ---
Indication: Left ankle swelling and infection, open wound anteromedial aspect of the ankle Technique: sagittal, axial, and coronal T1 FSE and FSE STIR images of the ankle. Pre and postcontrast axial T1 fat saturated, coronal postcontrast T1 fat saturated images of the ankle Comparison: Ankle radiograph dated 07/23/2018 Findings: A marker madsion the area of an open wound in the anteromedial left ankle, just cephalad to the tibiotalar joint. Focal serpiginous area of increased STIR signal appears to connect to the skin surface medially and possibly a second collection laterally, irregular in shape but measuring approximately 4 cm AP by 0.9 cm deep by 2 cm craniocaudad, demonstrates focal nonenhancement and is therefore consistent with an abscess. There is diffuse circumferential edema of the soft tissues with diffusely increased STIR signal, diffusely decreased T1 signal, and enhancement. No other focal areas of nonenhancement or confluent T2 signal abnormality to suggest drainable abscess demonstrated. No bone marrow signal abnormality is demonstrated. The major tendons appear to be intact. No joint effusion. Impression: Negative for evidence of osteomyelitis Evidence of 4 x 2 x 0.9 cm abscess with evidence of a medial and possibly lateral draining sinus tract that probably correlates with the stated clinical abnormality Evidence of diffuse soft tissue edema. This is nonspecific, could represent cellulitis, vasculogenic edema, or combination of both Findings previously discussed by phone with Dr. Gibson
--- NOTE | 2018-07-25 18:22 | Internal Med Progress Note ---
Subjective Date of Service: Jul 25, 2018 Physician Name Tommy Grimaldo Attending Physician Checo Carver MD Current Medications Medications (Trade) Dose Ordered Sig/Anjana Route PRN Reason Start Time Stop Time Status Last Admin Dose Admin Acetaminophen (Tylenol) 650 mg Q4H PRN ORAL Mild Pain (Pain Scale 1-3) 07/23/18 10:00 08/22/18 09:59 Acetaminophen/ Hydrocodone Bitart ([place] 5/325) 1 tab Q4H PRN ORAL Moderate Pain (Pain Scale 4-6) 07/23/18 10:45 07/30/18 10:44 07/25/18 08:28 Al Hydroxide/Mg Hydroxide (Mylanta II) 30 ml Q6H PRN ORAL dyspepsia 07/23/18 10:00 08/22/18 09:59 Albuterol/ Ipratropium (Albuterol/ Ipratropium) 3 ml Q4H PRN HHN Shortness of Breath 07/23/18 10:00 07/28/18 09:59 Dextrose (Dextrose 50%) 25 ml STAT PRN IV Hypoglycemia 07/23/18 10:00 08/22/18 09:59 Dextrose (Dextrose 50%) 50 ml STAT PRN IV Hypoglycemia 07/23/18 10:00 08/22/18 09:59 Gadobutrol (Gadavist) 7.5 mmol NOW PRN IV Radiology Procedure 07/24/18 15:45 07/26/18 15:44 Gadobutrol (Gadavist) 7.5 mmol NOW PRN IV Radiology Procedure 07/24/18 15:45 07/26/18 15:44 Heparin Sodium (Porcine) (Heparin 5000 units/ml) 5,000 units EVERY 12 HOURS SUBQ 07/23/18 21:00 08/22/18 20:59 07/25/18 08:34 Lisinopril (Zestril) 10 mg DAILY ORAL 07/24/18 09:00 08/23/18 08:59 07/25/18 08:27 Mupirocin (Bactroban Oint) 1 applic THREE TIMES A DAY TOPIC 07/24/18 18:30 07/29/18 18:29 07/25/18 12:41 Tamsulosin HCl (Flomax) 0.4 mg BEDTIME ORAL 07/23/18 21:00 08/22/18 20:59 07/24/18 20:11 Temazepam (Restoril) 15 mg HSPRN PRN ORAL Insomnia 07/23/18 21:00 07/30/18 20:59 Vancomycin HCl (Vanco rx to dose) 1 ea DAILY PRN MISC Per rx protocol 07/23/18 09:45 08/22/18 09:44 Vancomycin HCl 1 gm/Dextrose 275 ml @ 183.708 mls/hr Q8H IVPB 07/25/18 02:00 07/30/18 01:59 07/25/18 12:40 Allergies: Coded Allergies: No Known Allergies (Unverified , 07/23/18) ROS Limited/Unobtainable: No Constitutional: Reports: no symptoms HEENT: Reports: no symptoms Cardiovascular: Reports: no symptoms Respiratory: Reports: no symptoms Gastrointestinal/Abdominal: Reports: no symptoms Genitourinary: Reports: no symptoms Neurologic/Psychiatric: Reports: no symptoms Subjective 67 YO M with left leg pain. Now left leg cellulitis and stage II ulcer left ankle. Cover for Int Prasanth-Dr Carver Objective Last Vital Signs Date Time Temp Pulse Resp B/P (MAP) Pulse Ox O2 Delivery O2 Flow Rate FiO2 07/25/18 09:00 Room Air 07/25/18 08:27 145/84 07/25/18 08:00 97.6 83 20 97 97.6 07/24/18 21:32 21 Laboratory Tests Test 07/25/18 00:18 07/25/18 04:00 Vancomycin Level Trough 10.1 ug/mL (5.0-12.0) White Blood Count 10.5 K/UL (4.8-10.8) Red Blood Count 3.58 M/UL (4.70-6.10) L Hemoglobin 10.6 G/DL (14.2-18.0) L Hematocrit 32.5 % (42.0-52.0) L Mean Corpuscular Volume 91 FL (80-99) Mean Corpuscular Hemoglobin 29.6 PG (27.0-31.0) Mean Corpuscular Hemoglobin Concent 32.7 G/DL (32.0-36.0) Red Cell Distribution Width 14.2 % (11.6-14.8) Platelet Count 258 K/UL (150-450) Mean Platelet Volume 6.8 FL (6.5-10.1) Neutrophils (%) (Auto) 66.7 % (45.0-75.0) Lymphocytes (%) (Auto) 21.9 % (20.0-45.0) Monocytes (%) (Auto) 8.6 % (1.0-10.0) Eosinophils (%) (Auto) 1.9 % (0.0-3.0) Basophils (%) (Auto) 0.9 % (0.0-2.0) Erythrocyte Sedimentation Rate 110 MM/HR (0-20) H Sodium Level 137 MMOL/L (136-145) Potassium Level 4.0 MMOL/L (3.5-5.1) Chloride Level 103 MMOL/L (98-107) Carbon Dioxide Level 27 MMOL/L (21-32) Anion Gap 7 mmol/L (5-15) Blood Urea Nitrogen 10 mg/dL (7-18) Creatinine 1.0 MG/DL (0.55-1.30) Estimat Glomerular Filtration Rate > 60 mL/min (>60) Glucose Level 96 MG/DL (74-106) Calcium Level 9.1 MG/DL (8.5-10.1) C-Reactive Protein, Quantitative 31.1 mg/dL (0.00-0.90) H Free Thyroxine 1.16 NG/DL (0.76-1.46) Free Triiodothyronine 1.6 pg/mL (2.3-4.2) L Microbiology Date/Time Source Procedure Growth Status 07/23/18 10:00 Nasal Nares Nasopharyngeal Culture - Preliminary Resulted 07/23/18 10:00 Nasal Nares MRSA Culture - Final NO METHICILLIN RESISTANT STAPH AUREUS... Complete 07/23/18 10:00 Rectum VRE Culture - Final NO VANCOMYCIN RESISTANT ENTEROCOCCUS ... Complete 07/23/18 10:00 Foot Left Gram Stain - Final Complete 07/23/18 10:00 Wound Culture - Final Staphylococcus Aureus - Mrsa Complete Intake and Output 07/24/18 07/25/18 19:00 07:00 Intake Total 847.416 ml 635.000 ml Output Total 500 ml 1000 ml Balance 347.416 ml -365.000 ml Intake Oral 480 ml 360 ml IV Total 367.416 ml 275.000 ml Output Urine Total 500 ml 1000 ml # Voids 9 Objective General Appearance: WD/WN, no apparent distress, alert EENT: PERRL/EOMI, normal ENT inspection, TMs normal Neck: non-tender, normal alignment, supple, normal inspection Cardiovascular: normal peripheral pulses, normal rate, regularly irregular, no gallop/murmur, no JVD Respiratory/Chest: chest wall non-tender, lungs clear, normal breath sounds, no respiratory distress, no accessory muscle use Abdomen: normal bowel sounds, non tender, soft, no organomegaly, no mass Extremities: normal range of motion, non-tender Neurologic: yard associate II-XII grossly normal, no motor/sensory deficits Skin: warm/dry, other - erythema left lower leg with ulcer ankle Assessment/Plan Problem List: (1) Pressure ulcer, stage II (2) HTN (hypertension) Assessment & Plan: Continue lisinopril (3) BPH (benign prostatic hyperplasia) Assessment & Plan: Continue flomax (4) Cellulitis Assessment & Plan: left leg. Continue vanco; D/C zosyn per ID (5) Ankle abscess Assessment & Plan: Requires incision and drainage in OR-see podiarty note.. Needs cardiology clearance for surgery. Status: not improved Tommy Grimaldo MD Jul 25, 2018 18:22
--- NOTE | 2018-07-25 19:05 | Anethesia Preoperative Eval ---
Anesthesia Pre-op PMH/ROS General Date of Evaluation: Jul 25, 2018 Time of Evaluation: 19:02 Anesthesiologist: Peter ASA Score: ASA 3 Mallampati Score Class I : Soft palate, uvula, fauces, pillars visible Class II: Soft palate, uvula, fauces visible Class III: Soft palate, base of uvula visible Class IV: Only hard plate visible Mallampati Classification: Class II Surgeon: Nikolay Diagnosis: L ankle chronic wound Surgical Procedure: I&D of L ankle wound Anesthesia History: none Social History: current smoker Family History: no anesthesia problems Allergies: Coded Allergies: No Known Allergies (Unverified , 07/23/18) Medications: see eMAR Past Medical History Cardiovascular: Reports: HTN; Denies: CAD, PA, valve dz, arrhythmia, other Pulmonary: Reports: COPD; Denies: asthma, BETY, other Gastrointestinal/Genitourinary: Reports: GERD, other - BPH; Denies: CRI, ESRD Neurologic/Psychiatric: Reports: depression/anxiety; Denies: dementia, CVA, TIA, other Endocrine: Reports: hypothyroidism; Denies: DM, steroids, other HEENT: Denies: cataract (L), cataract (R), glaucoma, [place] (L), [place] (R), other Hematology/Immune: Denies: anemia, DVT, bleeding disorder, other Musculoskeletal/Integumentary: Reports: DJD; Denies: OA, RA, DDD, edema, other Other: other - malnourished PMH Narrative: as above chronic wound for 2-3 month PSxH Narrative: none Anesthesia Pre-op Phys. Exam Physician Exam Last Vital Signs Date Time Temp Pulse Resp B/P (MAP) Pulse Ox O2 Delivery O2 Flow Rate FiO2 07/25/18 09:00 Room Air 07/25/18 08:27 145/84 07/25/18 08:00 97.6 83 20 97 97.6 07/24/18 21:32 21 Constitutional: NAD Neurologic: CN 2-12 intact Cardiovascular: RRR, no M/R/G Respiratory: CTA Gastrointestinal: S/NT/ND Airway Exam Mallampati Score: Class II MO: limited Neck: stiff ROM: limited Teeth: missing Dentures: no upper, no lower Anesthesia Pre-op A/P Labs Hematology Test 07/25/18 04:00 White Blood Count 10.5 K/UL (4.8-10.8) Red Blood Count 3.58 M/UL (4.70-6.10) L Hemoglobin 10.6 G/DL (14.2-18.0) L Hematocrit 32.5 % (42.0-52.0) L Mean Corpuscular Volume 91 FL (80-99) Mean Corpuscular Hemoglobin 29.6 PG (27.0-31.0) Mean Corpuscular Hemoglobin Concent 32.7 G/DL (32.0-36.0) Red Cell Distribution Width 14.2 % (11.6-14.8) Platelet Count 258 K/UL (150-450) Mean Platelet Volume 6.8 FL (6.5-10.1) Neutrophils (%) (Auto) 66.7 % (45.0-75.0) Lymphocytes (%) (Auto) 21.9 % (20.0-45.0) Monocytes (%) (Auto) 8.6 % (1.0-10.0) Eosinophils (%) (Auto) 1.9 % (0.0-3.0) Basophils (%) (Auto) 0.9 % (0.0-2.0) Erythrocyte Sedimentation Rate 110 MM/HR (0-20) H Chemistry Test 07/25/18 04:00 Sodium Level 137 MMOL/L (136-145) Potassium Level 4.0 MMOL/L (3.5-5.1) Chloride Level 103 MMOL/L (98-107) Carbon Dioxide Level 27 MMOL/L (21-32) Anion Gap 7 mmol/L (5-15) Blood Urea Nitrogen 10 mg/dL (7-18) Creatinine 1.0 MG/DL (0.55-1.30) Estimat Glomerular Filtration Rate > 60 mL/min (>60) Glucose Level 96 MG/DL (74-106) Calcium Level 9.1 MG/DL (8.5-10.1) C-Reactive Protein, Quantitative 31.1 mg/dL (0.00-0.90) H Free Thyroxine 1.16 NG/DL (0.76-1.46) Free Triiodothyronine 1.6 pg/mL (2.3-4.2) L Studies Pre-op Studies: EKG - SR Risk Assessment & Plan Assessment: ASA 3 Plan: GA with LMA Status Change Before Surgery: No Pre-Antibiotics Drug: as scheduled Barry Green MD Jul 25, 2018 19:05
[2018-07-25 20:00] VITALS: BP 127/90
[2018-07-25] MEDS: Tamsulosin 0.4mg cap ORAL SCH (21:27)
[2018-07-26] VITALS: BP 153/78
[2018-07-26] MEDS: Vancomycin 1gm/D5W 275ml IVPB SCH ×8 (02:44→22:42)
[2018-07-26 05:09] LABS: BASOPHILS % (AUTO) 2.2 % (0.0-2.0); EOSINOPHILS % (AUTO) 2.4 % (0.0-3.0); HEMATOCRIT 32.4 % (42.0-52.0); HEMOGLOBIN 10.5 G/DL (14.2-18.0); LYMPHOCYTES % (AUTO) 23.8 % (20.0-45.0); MEAN CORPUSCULAR VOLUME 90 FL (80-99); MONOCYTES % (AUTO) 11.2 % (1.0-10.0); NEUTROPHILS % (AUTO) 60.5 % (45.0-75.0); PLATELET COUNT 267 K/UL (150-450); RED BLOOD COUNT 3.59 M/UL (4.70-6.10); RED CELL DISTRIBUTION WIDTH 14.2 % (11.6-14.8); WHITE BLOOD COUNT 8.2 K/UL (4.8-10.8)
[2018-07-26 05:18] LABS: ANION GAP 8 mmol/L (5-15); BLOOD UREA NITROGEN 13 mg/dL (7-18); CALCIUM 9.3 MG/DL (8.5-10.1); CARBON DIOXIDE 27 MMOL/L (21-32); CHLORIDE 105 MMOL/L (98-107); POTASSIUM 4.3 MMOL/L (3.5-5.1); SODIUM 140 MMOL/L (136-145)
[2018-07-26 08:00] VITALS: BP 139/93
--- NOTE | 2018-07-26 08:57 | Diagnostic Imaging Report ---
. Indication: Cough Technique: One view of the chest Comparison: none Findings: Lungs and pleural spaces are clear. Heart size is normal. The aorta is tortuous and calcified. There are median sternotomy sutures Impression: No acute process
[2018-07-26] MEDS: Lisinopril 10mg tab ORAL SCH (09:10)
[2018-07-26] MEDS: Heparin 5000 units/ml inj SUBQ SCH ×2 (09:11→21:00)
[2018-07-26] MEDS: Norco 5mg/325mg tab ORAL PRN ×4 (09:11→22:43)
[2018-07-26 12:00] VITALS: BP 143/92
--- NOTE | 2018-07-26 13:53 | Infectious Diseases Prog Note ---
Assessment/Plan Assessment/Plan Abx: IV Vanco 07/23- Zosyn 07/23- Assessment: L ankle ulcer/cellulitis- likely abscess- r/o OM -xray ankle: Bimalleolar soft tissue swelling. Mild degenerative changes at the ankle joint. 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 - MRI Left anckle/foot no evidence of OM Mild leukocytosis, SP -afebrile HTN BPH chronic low back pain Plan: -Continue IV Vancomycin #3 -d/c Zosyn #2 -Monitor CBC/CMP, temperatures -ESR, CRP am -wound care per hospital protocol -Podiatry eval - Will need I and D Will continue to follow along with you Subjective Allergies: Coded Allergies: No Known Allergies (Unverified , 07/23/18) Subjective Afebrile Pain controlled Objective Vital Signs Last 24 Hour Vital Signs Date Time Temp Pulse Resp B/P (MAP) Pulse Ox O2 Delivery O2 Flow Rate FiO2 07/26/18 12:00 98.1 66 20 143/92 (109) 96 98.1 07/26/18 09:10 139/93 07/26/18 09:00 Room Air 07/26/18 08:05 83 16 Room Air 21 07/26/18 08:00 97.7 67 19 139/93 (108) 96 97.7 07/26/18 00:00 98.2 82 18 153/78 (103) 97 98.2 07/25/18 21:00 Room Air 07/25/18 20:00 98.4 83 19 127/90 (102) 97 98.4 07/25/18 19:58 88 16 Room Air 21 07/25/18 16:00 97.9 82 18 150/103 (119) 98 97.9 Height (Feet): 5 Height (Inches): 11.00 Weight (Pounds): 150 Objective GENERAL: NAD, Alert HEENT: NCAT, MMM, EOMI CHEST: Lungs are clear to auscultation bilaterally without wheezes or rales. CARDIOVASCULAR: Regular rate. S1 and S2 are normal without murmurs, rubs, or gallops. ABDOMEN: Soft, nontender, nondistended. Positive bowel sounds. No evidence of hepatosplenomegaly. Currently, no rebound or guarding noted. EXTREMITIES: Presence of ulceration in the left ankle with erythema of the foot modedte TTP; +warmth, swelling. The ulcer is appears to be a stage II. mild purulent discharge Laboratory Tests Test 07/26/18 01:00 07/26/18 04:00 Vancomycin Level Trough 10.5 ug/mL (5.0-12.0) White Blood Count 8.2 K/UL (4.8-10.8) Red Blood Count 3.59 M/UL (4.70-6.10) L Hemoglobin 10.5 G/DL (14.2-18.0) L Hematocrit 32.4 % (42.0-52.0) L Mean Corpuscular Volume 90 FL (80-99) Mean Corpuscular Hemoglobin 29.3 PG (27.0-31.0) Mean Corpuscular Hemoglobin Concent 32.5 G/DL (32.0-36.0) Red Cell Distribution Width 14.2 % (11.6-14.8) Platelet Count 267 K/UL (150-450) Mean Platelet Volume 5.9 FL (6.5-10.1) L Neutrophils (%) (Auto) 60.5 % (45.0-75.0) Lymphocytes (%) (Auto) 23.8 % (20.0-45.0) Monocytes (%) (Auto) 11.2 % (1.0-10.0) H Eosinophils (%) (Auto) 2.4 % (0.0-3.0) Basophils (%) (Auto) 2.2 % (0.0-2.0) H Prothrombin Time 10.4 SEC (9.30-11.50) Prothromb Time International Ratio 1.0 (0.9-1.1) Activated Partial Thromboplast Time 36 SEC (23-33) H Sodium Level 140 MMOL/L (136-145) Potassium Level 4.3 MMOL/L (3.5-5.1) Chloride Level 105 MMOL/L (98-107) Carbon Dioxide Level 27 MMOL/L (21-32) Anion Gap 8 mmol/L (5-15) Blood Urea Nitrogen 13 mg/dL (7-18) Creatinine 1.0 MG/DL (0.55-1.30) Estimat Glomerular Filtration Rate > 60 mL/min (>60) Glucose Level 97 MG/DL (74-106) Calcium Level 9.3 MG/DL (8.5-10.1) Current Medications Medications (Trade) Dose Ordered Sig/Anjana Route PRN Reason Start Time Stop Time Status Last Admin Dose Admin Acetaminophen (Tylenol) 650 mg Q4H PRN ORAL Mild Pain (Pain Scale 1-3) 07/23/18 10:00 08/22/18 09:59 Acetaminophen/ Hydrocodone Bitart ([place] 5/325) 1 tab Q4H PRN ORAL Moderate Pain (Pain Scale 4-6) 07/23/18 10:45 07/30/18 10:44 07/26/18 09:11 Al Hydroxide/Mg Hydroxide (Mylanta II) 30 ml Q6H PRN ORAL dyspepsia 07/23/18 10:00 08/22/18 09:59 Albuterol/ Ipratropium (Albuterol/ Ipratropium) 3 ml Q4H PRN HHN Shortness of Breath 07/23/18 10:00 07/28/18 09:59 Dextrose (Dextrose 50%) 25 ml STAT PRN IV Hypoglycemia 07/23/18 10:00 08/22/18 09:59 Dextrose (Dextrose 50%) 50 ml STAT PRN IV Hypoglycemia 07/23/18 10:00 08/22/18 09:59 Gadobutrol (Gadavist) 7.5 mmol NOW PRN IV Radiology Procedure 07/24/18 15:45 07/26/18 15:44 Gadobutrol (Gadavist) 7.5 mmol NOW PRN IV Radiology Procedure 07/24/18 15:45 07/26/18 15:44 Heparin Sodium (Porcine) (Heparin 5000 units/ml) 5,000 units EVERY 12 HOURS SUBQ 07/23/18 21:00 08/22/18 20:59 07/26/18 09:11 Lisinopril (Zestril) 10 mg DAILY ORAL 07/24/18 09:00 08/23/18 08:59 07/26/18 09:10 Mupirocin (Bactroban Oint) 1 applic THREE TIMES A DAY TOPIC 07/24/18 18:30 07/29/18 18:29 07/26/18 13:04 Tamsulosin HCl (Flomax) 0.4 mg BEDTIME ORAL 07/23/18 21:00 08/22/18 20:59 07/25/18 21:27 Temazepam (Restoril) 15 mg HSPRN PRN ORAL Insomnia 07/23/18 21:00 07/30/18 20:59 Vancomycin HCl (Vanco rx to dose) 1 ea DAILY PRN MISC Per rx protocol 07/23/18 09:45 08/22/18 09:44 Vancomycin HCl 1 gm/Dextrose 275 ml @ 183.708 mls/hr Q6H IVPB 07/26/18 09:00 07/31/18 08:59 07/26/18 09:12 Be Israel MD Jul 26, 2018 13:53
--- NOTE | 2018-07-26 13:56 | Pulmonology Progress Note ---
Assessment/Plan Problems: (1) Cellulitis (2) HTN (hypertension) (3) BPH (benign prostatic hyperplasia) (4) Pressure ulcer, stage II Assessment/Plan getting better wound care iv abx check cultures symptomatic treatment check electrolytes Subjective ROS Limited/Unobtainable: No Constitutional: Reports: no symptoms HEENT: Repors: no symptoms Allergies: Coded Allergies: No Known Allergies (Unverified , 07/23/18) Objective Last 24 Hour Vital Signs Date Time Temp Pulse Resp B/P (MAP) Pulse Ox O2 Delivery O2 Flow Rate FiO2 07/26/18 12:00 98.1 66 20 143/92 (109) 96 98.1 07/26/18 09:10 139/93 07/26/18 09:00 Room Air 07/26/18 08:05 83 16 Room Air 21 07/26/18 08:00 97.7 67 19 139/93 (108) 96 97.7 07/26/18 00:00 98.2 82 18 153/78 (103) 97 98.2 07/25/18 21:00 Room Air 07/25/18 20:00 98.4 83 19 127/90 (102) 97 98.4 07/25/18 19:58 88 16 Room Air 21 07/25/18 16:00 97.9 82 18 150/103 (119) 98 97.9 Intake and Output 07/25/18 07/26/18 19:00 07:00 Intake Total 360 ml 275.000 ml Output Total 850 ml Balance -490 ml 275.000 ml Intake Oral 360 ml IV Total 275.000 ml Output Urine Total 850 ml # Voids 7 3 # Bowel Movements 1 General Appearance: WD/WN HEENT: normocephalic Respiratory/Chest: chest wall non-tender, lungs clear Cardiovascular: normal peripheral pulses, normal rate Abdomen: normal bowel sounds Genitourinary: normal external genitalia Skin: no rash Neurologic/Psychiatric: surveyor hydrographic II-XII grossly normal Laboratory Tests 07/26/18 01:00: Vancomycin Level Trough 10.5 07/26/18 04:00: White Blood Count 8.2, Red Blood Count 3.59L, Hemoglobin 10.5L, Hematocrit 32.4L , Mean Corpuscular Volume 90, Mean Corpuscular Hemoglobin 29.3, Mean Corpuscular Hemoglobin Concent 32.5, Red Cell Distribution Width 14.2, Platelet Count 267, Mean Platelet Volume 5.9L, Neutrophils (%) (Auto) 60.5, Lymphocytes ( %) (Auto) 23.8, Monocytes (%) (Auto) 11.2H, Eosinophils (%) (Auto) 2.4, Basophils (%) (Auto) 2.2H, Prothrombin Time 10.4, Prothromb Time International Ratio 1.0, Activated Partial Thromboplast Time 36H, Sodium Level 140, Potassium Level 4.3, Chloride Level 105, Carbon Dioxide Level 27, Anion Gap 8, Blood Urea Nitrogen 13, Creatinine 1.0, Estimat Glomerular Filtration Rate > 60, Glucose Level 97, Calcium Level 9.3 Current Medications Medications (Trade) Dose Ordered Sig/Anjana Route PRN Reason Start Time Stop Time Status Last Admin Dose Admin Acetaminophen (Tylenol) 650 mg Q4H PRN ORAL Mild Pain (Pain Scale 1-3) 07/23/18 10:00 08/22/18 09:59 Acetaminophen/ Hydrocodone Bitart ([place] 5/325) 1 tab Q4H PRN ORAL Moderate Pain (Pain Scale 4-6) 07/23/18 10:45 07/30/18 10:44 07/26/18 09:11 Al Hydroxide/Mg Hydroxide (Mylanta II) 30 ml Q6H PRN ORAL dyspepsia 07/23/18 10:00 08/22/18 09:59 Albuterol/ Ipratropium (Albuterol/ Ipratropium) 3 ml Q4H PRN HHN Shortness of Breath 07/23/18 10:00 07/28/18 09:59 Dextrose (Dextrose 50%) 25 ml STAT PRN IV Hypoglycemia 07/23/18 10:00 08/22/18 09:59 Dextrose (Dextrose 50%) 50 ml STAT PRN IV Hypoglycemia 07/23/18 10:00 08/22/18 09:59 Gadobutrol (Gadavist) 7.5 mmol NOW PRN IV Radiology Procedure 07/24/18 15:45 07/26/18 15:44 Gadobutrol (Gadavist) 7.5 mmol NOW PRN IV Radiology Procedure 07/24/18 15:45 07/26/18 15:44 Heparin Sodium (Porcine) (Heparin 5000 units/ml) 5,000 units EVERY 12 HOURS SUBQ 07/23/18 21:00 08/22/18 20:59 07/26/18 09:11 Lisinopril (Zestril) 10 mg DAILY ORAL 07/24/18 09:00 08/23/18 08:59 07/26/18 09:10 Mupirocin (Bactroban Oint) 1 applic THREE TIMES A DAY TOPIC 07/24/18 18:30 07/29/18 18:29 07/26/18 13:04 Tamsulosin HCl (Flomax) 0.4 mg BEDTIME ORAL 07/23/18 21:00 08/22/18 20:59 07/25/18 21:27 Temazepam (Restoril) 15 mg HSPRN PRN ORAL Insomnia 07/23/18 21:00 07/30/18 20:59 Vancomycin HCl (Vanco rx to dose) 1 ea DAILY PRN MISC Per rx protocol 07/23/18 09:45 08/22/18 09:44 Vancomycin HCl 1 gm/Dextrose 275 ml @ 183.708 mls/hr Q6H IVPB 07/26/18 09:00 07/31/18 08:59 07/26/18 09:12 Katerina Guadarrama MD Jul 26, 2018 13:56
[2018-07-26 16:00] VITALS: BP 139/93
--- NOTE | 2018-07-26 17:08 | Internal Med Progress Note ---
Subjective Date of Service: Jul 26, 2018 Physician Name Tommy Grimaldo Attending Physician Checo Carver MD Current Medications Medications (Trade) Dose Ordered Sig/Anjana Route PRN Reason Start Time Stop Time Status Last Admin Dose Admin Acetaminophen (Tylenol) 650 mg Q4H PRN ORAL Mild Pain (Pain Scale 1-3) 07/23/18 10:00 08/22/18 09:59 Acetaminophen/ Hydrocodone Bitart ([place] 5/325) 1 tab Q4H PRN ORAL Moderate Pain (Pain Scale 4-6) 07/23/18 10:45 07/30/18 10:44 07/26/18 14:27 Al Hydroxide/Mg Hydroxide (Mylanta II) 30 ml Q6H PRN ORAL dyspepsia 07/23/18 10:00 08/22/18 09:59 Albuterol/ Ipratropium (Albuterol/ Ipratropium) 3 ml Q4H PRN HHN Shortness of Breath 07/23/18 10:00 07/28/18 09:59 Dextrose (Dextrose 50%) 25 ml STAT PRN IV Hypoglycemia 07/23/18 10:00 08/22/18 09:59 Dextrose (Dextrose 50%) 50 ml STAT PRN IV Hypoglycemia 07/23/18 10:00 08/22/18 09:59 Heparin Sodium (Porcine) (Heparin 5000 units/ml) 5,000 units EVERY 12 HOURS SUBQ 07/23/18 21:00 08/22/18 20:59 07/26/18 09:11 Lisinopril (Zestril) 10 mg DAILY ORAL 07/24/18 09:00 08/23/18 08:59 07/26/18 09:10 Mupirocin (Bactroban Oint) 1 applic THREE TIMES A DAY TOPIC 07/24/18 18:30 07/29/18 18:29 07/26/18 13:04 Tamsulosin HCl (Flomax) 0.4 mg BEDTIME ORAL 07/23/18 21:00 08/22/18 20:59 07/25/18 21:27 Temazepam (Restoril) 15 mg HSPRN PRN ORAL Insomnia 07/23/18 21:00 07/30/18 20:59 Vancomycin HCl (Vanco rx to dose) 1 ea DAILY PRN MISC Per rx protocol 9/2/18 09:45 08/22/18 09:44 Vancomycin HCl 1 gm/Dextrose 275 ml @ 183.708 mls/hr Q6H IVPB 07/26/18 09:00 07/31/18 08:59 07/26/18 16:18 Allergies: Coded Allergies: No Known Allergies (Unverified , 07/23/18) ROS Limited/Unobtainable: No Constitutional: Reports: no symptoms HEENT: Reports: no symptoms Cardiovascular: Reports: no symptoms Respiratory: Reports: no symptoms Gastrointestinal/Abdominal: Reports: no symptoms Genitourinary: Reports: no symptoms Neurologic/Psychiatric: Reports: no symptoms Subjective 67 YO M with left leg pain. Now left leg cellulitis and stage II ulcer left ankle. Cover for Int Med-Dr Carver. Await surgical incision and drainage abscess left leg abscess. Objective Last Vital Signs Date Time Temp Pulse Resp B/P (MAP) Pulse Ox O2 Delivery O2 Flow Rate FiO2 07/26/18 16:00 97.7 79 19 139/93 (108) 96 97.7 07/26/18 09:00 Room Air 07/26/18 08:05 21 Laboratory Tests Test 07/26/18 01:00 07/26/18 04:00 Vancomycin Level Trough 10.5 ug/mL (5.0-12.0) White Blood Count 8.2 K/UL (4.8-10.8) Red Blood Count 3.59 M/UL (4.70-6.10) L Hemoglobin 10.5 G/DL (14.2-18.0) L Hematocrit 32.4 % (42.0-52.0) L Mean Corpuscular Volume 90 FL (80-99) Mean Corpuscular Hemoglobin 29.3 PG (27.0-31.0) Mean Corpuscular Hemoglobin Concent 32.5 G/DL (32.0-36.0) Red Cell Distribution Width 14.2 % (11.6-14.8) Platelet Count 267 K/UL (150-450) Mean Platelet Volume 5.9 FL (6.5-10.1) L Neutrophils (%) (Auto) 60.5 % (45.0-75.0) Lymphocytes (%) (Auto) 23.8 % (20.0-45.0) Monocytes (%) (Auto) 11.2 % (1.0-10.0) H Eosinophils (%) (Auto) 2.4 % (0.0-3.0) Basophils (%) (Auto) 2.2 % (0.0-2.0) H Prothrombin Time 10.4 SEC (9.30-11.50) Prothromb Time International Ratio 1.0 (0.9-1.1) Activated Partial Thromboplast Time 36 SEC (23-33) H Sodium Level 140 MMOL/L (136-145) Potassium Level 4.3 MMOL/L (3.5-5.1) Chloride Level 105 MMOL/L (98-107) Carbon Dioxide Level 27 MMOL/L (21-32) Anion Gap 8 mmol/L (5-15) Blood Urea Nitrogen 13 mg/dL (7-18) Creatinine 1.0 MG/DL (0.55-1.30) Estimat Glomerular Filtration Rate > 60 mL/min (>60) Glucose Level 97 MG/DL (74-106) Calcium Level 9.3 MG/DL (8.5-10.1) Intake and Output 07/25/18 07/26/18 19:00 07:00 Intake Total 360 ml 275.000 ml Output Total 850 ml Balance -490 ml 275.000 ml Intake Oral 360 ml IV Total 275.000 ml Output Urine Total 850 ml # Voids 7 3 # Bowel Movements 1 Objective General Appearance: WD/WN, no apparent distress, alert EENT: PERRL/EOMI, normal ENT inspection, TMs normal Neck: non-tender, normal alignment, supple, normal inspection Cardiovascular: normal peripheral pulses, normal rate, regularly irregular, no gallop/murmur, no JVD Respiratory/Chest: chest wall non-tender, lungs clear, normal breath sounds, no respiratory distress, no accessory muscle use Abdomen: normal bowel sounds, non tender, soft, no organomegaly, no mass Extremities: normal range of motion, non-tender Neurologic: [employer] II-XII grossly normal, no motor/sensory deficits Skin: warm/dry, other - erythema left lower leg with ulcer ankle Assessment/Plan Problem List: (1) Pressure ulcer, stage II (2) HTN (hypertension) Assessment & Plan: Continue lisinopril (3) BPH (benign prostatic hyperplasia) Assessment & Plan: Continue flomax (4) Cellulitis Assessment & Plan: left leg. Continue vanco; D/C zosyn per ID (5) Ankle abscess Assessment & Plan: Requires incision and drainage in OR-see podiarty note.. Needs cardiology clearance for surgery. Status: not improved Tommy Grimaldo MD Jul 26, 2018 17:08
--- NOTE | 2018-07-26 17:17 | Cardiac Electrophysiology PN ---
Subjective Subjective Consult dictated [id number]. ECG was non ischemic at [facility]. No CAD or CHF. OK to proceed with this low risk procedure( ankle wound debridement) Objective Last 24 Hour Vital Signs Date Time Temp Pulse Resp B/P (MAP) Pulse Ox O2 Delivery O2 Flow Rate FiO2 07/26/18 16:00 97.7 79 19 139/93 (108) 96 97.7 07/26/18 12:00 98.1 66 20 143/92 (109) 96 98.1 07/26/18 09:10 139/93 07/26/18 09:00 Room Air 07/26/18 08:05 83 16 Room Air 21 07/26/18 08:00 97.7 67 19 139/93 (108) 96 97.7 07/26/18 00:00 98.2 82 18 153/78 (103) 97 98.2 07/25/18 21:00 Room Air 07/25/18 20:00 98.4 83 19 127/90 (102) 97 98.4 07/25/18 19:58 88 16 Room Air 21 Intake and Output 07/25/18 07/26/18 19:00 07:00 Intake Total 360 ml 275.000 ml Output Total 850 ml Balance -490 ml 275.000 ml Intake Oral 360 ml IV Total 275.000 ml Output Urine Total 850 ml # Voids 7 3 # Bowel Movements 1 Laboratory Tests Test 07/26/18 01:00 07/26/18 04:00 Vancomycin Level Trough 10.5 ug/mL (5.0-12.0) White Blood Count 8.2 K/UL (4.8-10.8) Red Blood Count 3.59 M/UL (4.70-6.10) L Hemoglobin 10.5 G/DL (14.2-18.0) L Hematocrit 32.4 % (42.0-52.0) L Mean Corpuscular Volume 90 FL (80-99) Mean Corpuscular Hemoglobin 29.3 PG (27.0-31.0) Mean Corpuscular Hemoglobin Concent 32.5 G/DL (32.0-36.0) Red Cell Distribution Width 14.2 % (11.6-14.8) Platelet Count 267 K/UL (150-450) Mean Platelet Volume 5.9 FL (6.5-10.1) L Neutrophils (%) (Auto) 60.5 % (45.0-75.0) Lymphocytes (%) (Auto) 23.8 % (20.0-45.0) Monocytes (%) (Auto) 11.2 % (1.0-10.0) H Eosinophils (%) (Auto) 2.4 % (0.0-3.0) Basophils (%) (Auto) 2.2 % (0.0-2.0) H Prothrombin Time 10.4 SEC (9.30-11.50) Prothromb Time International Ratio 1.0 (0.9-1.1) Activated Partial Thromboplast Time 36 SEC (23-33) H Sodium Level 140 MMOL/L (136-145) Potassium Level 4.3 MMOL/L (3.5-5.1) Chloride Level 105 MMOL/L (98-107) Carbon Dioxide Level 27 MMOL/L (21-32) Anion Gap 8 mmol/L (5-15) Blood Urea Nitrogen 13 mg/dL (7-18) Creatinine 1.0 MG/DL (0.55-1.30) Estimat Glomerular Filtration Rate > 60 mL/min (>60) Glucose Level 97 MG/DL (74-106) Calcium Level 9.3 MG/DL (8.5-10.1) Albin Shelton MD Jul 26, 2018 17:17
[2018-07-26 20:00] VITALS: BP 113/83
[2018-07-26] MEDS: Tamsulosin 0.4mg cap ORAL SCH (20:23)
--- NOTE | 2018-07-26 23:00 | Consultation ---
DATE OF CONSULTATION: 07/26/2018 CARDIOLOGY CONSULTATION CONSULTING PHYSICIAN: Albin Shelton M.D. REFERRING PHYSICIAN: Checo Carver M.D. REASON FOR CONSULTATION: Management of hypertension and preoperative clearance prior to ankle surgery. HISTORY OF PRESENT ILLNESS: The patient is a 67-year-old gentleman with history of hypertension, benign prostatic hypertrophy, as well as chronic back pain, presented at [facility] for pain and swelling of the left ankle. The patient was then transferred to [facility] for further evaluation. White count was 12,000 and had an ulcer on the left ankle. The patient was started on intravenous vancomycin and Zosyn per ID and Cardiology clearance was requested. The patient denies any prior myocardial infarction or coronary artery disease or congestive heart failure. PAST MEDICAL HISTORY: As mentioned above. FAMILY HISTORY: Noncontributory. SOCIAL HISTORY: He does not smoke or drink alcohol. He lives at home. REVIEW OF SYSTEMS: Performed and was negative other than what was mentioned in the history of present illness. PHYSICAL EXAMINATION: VITAL SIGNS: Blood pressure is 139/93, pulse 79, respiration 19, and temperature is 97.7. HEAD AND NECK: Shows no JVD. LUNGS: Clear. CARDIOVASCULAR: Shows regular S1 and S2 with no gallop or murmur. ABDOMEN: Soft and nontender. EXTREMITIES: No pitting edema, but in the right foot. However, left ankle and also on the lateral side has 1+ pitting edema in the left leg. LABORATORY DATA: White count of 8.2, hemoglobin 10.5, hematocrit 32.5, and platelet of 267,000. Sodium is 140, potassium is 4.3, BUN of 30, creatinine of 1, and glucose of 97. INR is 1. ASSESSMENT AND PLAN: 1. Hypertension. Blood pressure currently is stable on lisinopril 10 mg daily that would be continued. 2. Benign prostatic hypertrophy. On Flomax. 3. Left ankle ulcer. The patient denies any prior myocardial infarction or coronary artery disease or congestive heart failure. At this time, the vascular procedure is not as the risk is low. The patient is stable from cardiac perspective to proceed with above-mentioned procedure. We will order an echocardiogram, but no further cardiac testing is warranted at this time. His EKG also showed no acute ST-T wave abnormalities and no ischemic changes and chest x-ray showed no acute findings at [place]. Thank you very much, Dr. Carver, for allowing me to participate in the care of this patient. Please do not hesitate to contact me for any questions regarding my evaluation. Albin Shelton M.D. DR: GARRISON JOB#: [id number] CC:
--- NOTE | 2018-07-26 23:17 | General Progress Note ---
Assessment/Plan Status: stable, progressing Assessment/Plan depressive d/o by hx the pt refuses placement will attempt to reeval Subjective Date patient seen: Jul 26, 2018 Neurologic/Psychiatric: Reports: anxiety, depressed, emotional problems Allergies: Coded Allergies: No Known Allergies (Unverified , 07/23/18) Objective Last 24 Hour Vital Signs Date Time Temp Pulse Resp B/P (MAP) Pulse Ox O2 Delivery O2 Flow Rate FiO2 07/26/18 21:00 Room Air 07/26/18 20:00 98.6 76 20 113/83 (93) 98 98.6 07/26/18 16:00 97.7 79 19 139/93 (108) 96 97.7 07/26/18 12:00 98.1 66 20 143/92 (109) 96 98.1 07/26/18 09:10 139/93 07/26/18 09:00 Room Air 07/26/18 08:05 83 16 Room Air 21 07/26/18 08:00 97.7 67 19 139/93 (108) 96 97.7 07/26/18 00:00 98.2 82 18 153/78 (103) 97 98.2 Intake and Output 07/25/18 07/26/18 19:00 07:00 Intake Total 360 ml 275.000 ml Output Total 850 ml Balance -490 ml 275.000 ml Intake Oral 360 ml IV Total 275.000 ml Output Urine Total 850 ml # Voids 7 3 # Bowel Movements 1 Laboratory Tests 07/26/18 01:00: Vancomycin Level Trough 10.5 07/26/18 04:00: White Blood Count 8.2, Red Blood Count 3.59L, Hemoglobin 10.5L, Hematocrit 32.4L , Mean Corpuscular Volume 90, Mean Corpuscular Hemoglobin 29.3, Mean Corpuscular Hemoglobin Concent 32.5, Red Cell Distribution Width 14.2, Platelet Count 267, Mean Platelet Volume 5.9L, Neutrophils (%) (Auto) 60.5, Lymphocytes ( %) (Auto) 23.8, Monocytes (%) (Auto) 11.2H, Eosinophils (%) (Auto) 2.4, Basophils (%) (Auto) 2.2H, Prothrombin Time 10.4, Prothromb Time International Ratio 1.0, Activated Partial Thromboplast Time 36H, Sodium Level 140, Potassium Level 4.3, Chloride Level 105, Carbon Dioxide Level 27, Anion Gap 8, Blood Urea Nitrogen 13, Creatinine 1.0, Estimat Glomerular Filtration Rate > 60, Glucose Level 97, Calcium Level 9.3 07/26/18 19:55: Vancomycin Level Trough 25.6H Height (Feet): 5 Height (Inches): 11.00 Weight (Pounds): 150 General Appearance: no apparent distress, alert Neurologic: depressed affect Andres Coffey MD Jul 26, 2018 23:17
[2018-07-27] VITALS (12 sets, daily range): BP systolic 116–153; BP diastolic 72–99
[2018-07-27] MEDS: Vancomycin 1gm/D5W 275ml IVPB SCH ×4 (06:11→15:13)
--- NOTE | 2018-07-27 08:11 | Infectious Diseases Prog Note ---
Assessment/Plan Assessment/Plan Abx: IV Vanco 07/23- Zosyn 07/23- Assessment: L ankle ulcer/cellulitis- likely abscess- r/o OM -xray ankle: Bimalleolar soft tissue swelling. Mild degenerative changes at the ankle joint. 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 - MRI Left anckle/foot no evidence of OM Mild leukocytosis, SP -afebrile HTN BPH chronic low back pain Plan: -Continue IV Vancomycin #4 -d/c Zosyn #2 -Monitor CBC/CMP, temperatures -ESR, CRP am -wound care per hospital protocol -Podiatry eval - Will need I and D Will continue to follow along with you Subjective Allergies: Coded Allergies: No Known Allergies (Unverified , 07/23/18) Subjective Low risk for surgery per cards - Waiting for I and D Afebrile Pain controlled Objective Vital Signs Last 24 Hour Vital Signs Date Time Temp Pulse Resp B/P (MAP) Pulse Ox O2 Delivery O2 Flow Rate FiO2 07/27/18 04:00 98.1 76 18 134/83 (100) 96 98.1 07/27/18 00:00 98.2 70 20 135/75 (95) 96 98.2 07/26/18 23:32 76 18 Room Air 21 07/26/18 21:00 Room Air 07/26/18 20:00 98.6 76 20 113/83 (93) 98 98.6 07/26/18 16:00 97.7 79 19 139/93 (108) 96 97.7 07/26/18 12:00 98.1 66 20 143/92 (109) 96 98.1 07/26/18 09:10 139/93 07/26/18 09:00 Room Air Height (Feet): 5 Height (Inches): 11.00 Weight (Pounds): 150 Objective GENERAL: NAD, Alert and oriented HEENT: NCAT, MMM, EOMI CHEST: Lungs are clear to auscultation bilaterally without wheezes or rales. CARDIOVASCULAR: Regular rate. S1 and S2 are normal without murmurs, rubs, or gallops. ABDOMEN: Soft, nontender, nondistended. Positive bowel sounds. EXTREMITIES: Presence of ulceration in the left ankle with erythema of the foot modedte TTP; +warmth, swelling. The ulcer is appears to be a stage II. mild purulent discharge Laboratory Tests Test 07/26/18 19:55 Vancomycin Level Trough 25.6 ug/mL (5.0-12.0) H Current Medications Medications (Trade) Dose Ordered Sig/Anjana Route PRN Reason Start Time Stop Time Status Last Admin Dose Admin Acetaminophen (Tylenol) 650 mg Q4H PRN ORAL Mild Pain (Pain Scale 1-3) 07/23/18 10:00 08/22/18 09:59 Acetaminophen/ Hydrocodone Bitart ([place] 5/325) 1 tab Q4H PRN ORAL Moderate Pain (Pain Scale 4-6) 07/23/18 10:45 07/30/18 10:44 07/26/18 22:43 Al Hydroxide/Mg Hydroxide (Mylanta II) 30 ml Q6H PRN ORAL dyspepsia 07/23/18 10:00 08/22/18 09:59 Albuterol/ Ipratropium (Albuterol/ Ipratropium) 3 ml Q4H PRN HHN Shortness of Breath 07/23/18 10:00 07/28/18 09:59 Dextrose (Dextrose 50%) 25 ml STAT PRN IV Hypoglycemia 07/23/18 10:00 08/22/18 09:59 Dextrose (Dextrose 50%) 50 ml STAT PRN IV Hypoglycemia 07/23/18 10:00 08/22/18 09:59 Heparin Sodium (Porcine) (Heparin 5000 units/ml) 5,000 units EVERY 12 HOURS SUBQ 07/23/18 21:00 08/22/18 20:59 07/26/18 09:11 Lisinopril (Zestril) 10 mg DAILY ORAL 07/24/18 09:00 08/23/18 08:59 07/26/18 09:10 Mupirocin (Bactroban Oint) 1 applic THREE TIMES A DAY TOPIC 07/24/18 18:30 07/29/18 18:29 07/26/18 17:11 Tamsulosin HCl (Flomax) 0.4 mg BEDTIME ORAL 07/23/18 21:00 08/22/18 20:59 07/26/18 20:23 Temazepam (Restoril) 15 mg HSPRN PRN ORAL Insomnia 07/23/18 21:00 07/30/18 20:59 Vancomycin HCl (Vanco rx to dose) 1 ea DAILY PRN MISC Per rx protocol 07/23/18 09:45 08/22/18 09:44 Vancomycin HCl 1 gm/Dextrose 275 ml @ 183.708 mls/hr Q8H IVPB 07/26/18 23:00 07/31/18 22:59 07/27/18 06:11 Be Israel MD Jul 27, 2018 08:11
[2018-07-27] MEDS: Heparin 5000 units/ml inj SUBQ SCH ×2 (09:00→21:03)
[2018-07-27] MEDS: Lisinopril 10mg tab ORAL SCH (09:00)
[2018-07-27] MEDS ORDERED: NeoSporin Gu Irrig 1ml Amp IRRIG ONE (11:43)
[2018-07-27] MEDS ORDERED: Bupivacaine 0.5% Inj 30 ml vial INJ ONE (11:43)
[2018-07-27] MEDS ORDERED: Bacitracin 50000 Units Vial ONE (11:43)
[2018-07-27] MEDS ORDERED: Midazolam 2mg/2ml Inj ONE (11:58)
[2018-07-27] MEDS ORDERED: fentaNYL 100 mcg/2 mL IV ONE (11:59)
[2018-07-27] MEDS ORDERED: Propofol 200mg/20ml IV ONE (11:59)
[2018-07-27] MEDS ORDERED: LR 1000ml ONE (12:00)
[2018-07-27] MEDS ORDERED: Lidocaine 1% MPF 10mg/ml 5ml ONE (12:00)
[2018-07-27] MEDS ORDERED: Sterile Water For Irrig 2000ml IRRIG ONE (12:00)
[2018-07-27] MEDS ORDERED: NS Irrig 1000ml ONE (12:00)
--- NOTE | 2018-07-27 12:01 | Pre-Procedure Note/Attestation ---
Pre-Procedure Note/Attestation Complete Prior to Procedure Planned Procedure: left Procedure Narrative: Incision and drainage left ankle Indications for Procedure Pre-Operative Diagnosis: Abscess left ankle Attestation I attest that I discussed the nature of the procedure; its benefits; risks and complications; and alternatives (and the risks and benefits of such alternatives ), prior to the procedure, with the patient (or the patient's legal high school admissions representative). I attest that, if there was a reasonable possibility of needing a blood transfusion, the patient (or the patient's legal high school admissions representative) was given the [facility] standardized written summary, pursuant to the Claude Cirilo Blood Safety Act ([place] Health and Safety Code # 1645, as amended). I attest that I re-evaluated the patient just prior to the surgery and that there has been no change in the patient's H&P, except as documented below: Janusz Gibson DPM Jul 27, 2018 12:01
--- NOTE | 2018-07-27 12:38 | Brief Operative Note ---
Immediate Post Operative Note Operative Note Pre-op Diagnosis: Abscess left ankle Procedure: Incision and drainage deep to fascia left ankle Post-op Diagnosis: same as pre-op Surgeon: Janusz Gibson DPM Gate Technician: none Anesthesiologist: Dr Calderón Anesthesia: general Specimen: yes - Deep cultures of abscess Complications: none Condition: stable Fluids: per anesthesia Estimated Blood Loss: minimal - 3 Drains: other - packing Implant(s) used?: No Janusz Gibson DPM Jul 27, 2018 12:38
[2018-07-27] MEDS ORDERED: LR 1000ml 1,000 ML IVLG SCH (12:44)
--- NOTE | 2018-07-27 12:44 | Immediate Post-Op Evaluation ---
Immediate Post-Op Evalulation Immediate Post-Op Evalulation Procedure: Left ankle I&D Date of Evaluation: Jul 27, 2018 Time of Evaluation: 12:45 IV Fluids: 300 Blood Products: 0 Estimated Blood Loss: 3 Urinary Output: 0 Blood Pressure Systolic: 130 Blood Pressure Diastolic: 96 Pulse Rate: 105 Respiratory Rate: 16 O2 Sat by Pulse Oximetry: 100 Temperature (Fahrenheit): 97.8 Pain Score (1-10): 0 Nausea: No Vomiting: No Complications 0 Patient Status: awake, reacts, patent, none Hydration Status: adequate Drug: On floor Given Within 1 Hr of Incision: Yes Paula Rodrigez MD Jul 27, 2018 12:44
[2018-07-27] MEDS ORDERED: Labetalol 5mg/ml 20ml vial IV PRN (12:45)
[2018-07-27] MEDS ORDERED: LORazepam Inj 2mg/ml 1ml IV PRN (12:45)
[2018-07-27] MEDS ORDERED: Hydromorphone 0.5mg/0.5ml inj IVP PRN (12:45)
[2018-07-27] MEDS ORDERED: DiphenhydrAMINE 50mg/ml Inj IVP PRN (12:45)
[2018-07-27] MEDS ORDERED: fentaNYL 100 mcg/2 mL IV PRN (12:45)
[2018-07-27] MEDS ORDERED: Midazolam 2mg/2ml Inj IVP PRN (12:45)
[2018-07-27] MEDS ORDERED: VANCOMYCIN1 GM/200 M IV (15:19)
--- NOTE | 2018-07-27 15:57 | Diagnostic Imaging Report ---
APPROVED REPORT CPT Code: 70561 Present Symptoms Comments: LEFT LEG SWELLING. BILATERAL: Imaging reveals a patent deep venous system bilaterally. There is no evidence of thrombus within the femoral, popliteal or tibial segments. The greater saphenous veins are also within normal limits. Doppler indicates normal spontaneous flow within these segments.
--- NOTE | 2018-07-27 17:33 | Cardiac Electrophysiology PN ---
Assessment/Plan Assessment/Plan 1. Hypertension. Continue lisinopril 10 mg daily. 2. Benign prostatic hypertrophy. On Flomax. 3. Left ankle ulcer. The patient denies any prior myocardial infarction or coronary artery disease or congestive heart failure. Tolerated the procedure well. Subjective Subjective Had ankle wound debridement today. No CP or SOB Objective Last 24 Hour Vital Signs Date Time Temp Pulse Resp B/P (MAP) Pulse Ox O2 Delivery O2 Flow Rate FiO2 07/27/18 16:00 98.2 60 18 128/76 (93) 96 98.2 07/27/18 13:30 97.4 74 16 153/98 97 Room Air 97.4 70 07/27/18 13:15 71 15 141/91 100 Room Air 70 07/27/18 13:05 87 15 148/99 98 Room Air 87 07/27/18 12:50 98 14 135/91 99 Room Air 98 07/27/18 12:45 101 13 145/79 100 Room Air 101 07/27/18 12:44 208.0 105 16 100 07/27/18 12:40 97.8 105 16 130/90 100 Simple Mask 6 97.8 105 07/27/18 12:00 97.7 93 18 116/76 (89) 96 97.7 07/27/18 09:18 81 18 Room Air 21 07/27/18 09:00 Room Air 07/27/18 09:00 119/83 07/27/18 08:00 98.1 72 18 119/83 (95) 96 98.1 07/27/18 04:00 98.1 76 18 134/83 (100) 96 98.1 07/27/18 00:00 98.2 70 20 135/75 (95) 96 98.2 07/26/18 23:32 76 18 Room Air 21 07/26/18 21:00 Room Air 07/26/18 20:00 98.6 76 20 113/83 (93) 98 98.6 Intake and Output 07/26/18 07/27/18 19:00 07:00 Intake Total 1000.000 ml 395.000 ml Output Total 375 ml 800 ml Balance 625.000 ml -405.000 ml Intake Oral 450 ml 120 ml IV Total 550.000 ml 275.000 ml Output Urine Total 375 ml 800 ml # Bowel Movements 1 Laboratory Tests Test 07/26/18 19:55 Vancomycin Level Trough 25.6 ug/mL (5.0-12.0) H Objective HEAD AND NECK: Shows no JVD. LUNGS: Clear. CARDIOVASCULAR: Shows regular S1 and S2 with no gallop or murmur. ABDOMEN: Soft and nontender. EXTREMITIES: S/P Left ankle debridement Albin Shelton MD Jul 27, 2018 17:33
--- NOTE | 2018-07-27 19:47 | Internal Med Progress Note ---
Subjective Physician Name Tommy Grimaldo Attending Physician Checo Carver MD Current Medications Medications (Trade) Dose Ordered Sig/Anjana Route PRN Reason Start Time Stop Time Status Last Admin Dose Admin Acetaminophen (Tylenol) 650 mg Q4H PRN ORAL Mild Pain (Pain Scale 1-3) 07/23/18 10:00 08/22/18 09:59 Acetaminophen (Tylenol) 650 mg Q4H PRN ORAL Mild Pain (Pain Scale 1-3) 07/27/18 12:45 07/27/18 20:00 Acetaminophen/ Hydrocodone Bitart ([place] 5/325) 1 tab Q4H PRN ORAL Moderate Pain (Pain Scale 4-6) 07/23/18 10:45 07/30/18 10:44 07/26/18 22:43 Al Hydroxide/Mg Hydroxide (Mylanta II) 30 ml Q6H PRN ORAL dyspepsia 07/23/18 10:00 08/22/18 09:59 Albuterol/ Ipratropium (Albuterol/ Ipratropium) 3 ml Q4H PRN HHN Shortness of Breath 07/23/18 10:00 07/28/18 09:59 Dextrose (Dextrose 50%) 25 ml STAT PRN IV Hypoglycemia 07/23/18 10:00 08/22/18 09:59 Dextrose (Dextrose 50%) 50 ml STAT PRN IV Hypoglycemia 07/23/18 10:00 08/22/18 09:59 Diphenhydramine HCl (Benadryl) 25 mg Q15M PRN IVP Itching 07/27/18 12:45 07/27/18 20:00 Fentanyl Citrate (Sublimaze 100 mcg/2 mL) 25 mcg Q10M PRN IV Moderate Pain (Pain Scale 4-6) 07/27/18 12:45 07/27/18 20:00 Heparin Sodium (Porcine) (Heparin 5000 units/ml) 5,000 units EVERY 12 HOURS SUBQ 07/23/18 21:00 08/22/18 20:59 07/26/18 09:11 Hydromorphone HCl (Dilaudid) 0.5 mg Q15M PRN IVP Severe Pain (Pain Scale 7-10) 07/27/18 12:45 07/27/18 20:00 Labetalol HCl (Normodyne) 5 mg Q10M PRN IV SBP>160 / DBP>90 07/27/18 12:45 07/27/18 20:00 Lisinopril (Zestril) 10 mg DAILY ORAL 07/24/18 09:00 08/23/18 08:59 07/26/18 09:10 Lorazepam (Ativan 2mg/ml 1ml) 0.5 mg Q15M PRN IV For Anxiety 07/27/18 12:45 07/27/18 20:00 Midazolam HCl (Versed 2mg/2ml vial) 1 mg Q15M PRN IVP For Anxiety 07/27/18 12:45 07/27/18 20:00 Mupirocin (Bactroban Oint) 1 applic THREE TIMES A DAY TOPIC 07/24/18 18:30 07/29/18 18:29 07/27/18 09:00 Ondansetron HCl (Zofran) 4 mg Q1H PRN IVP Nausea & Vomiting 07/27/18 12:45 07/27/18 20:00 Tamsulosin HCl (Flomax) 0.4 mg BEDTIME ORAL 07/23/18 21:00 08/22/18 20:59 07/26/18 20:23 Temazepam (Restoril) 15 mg HSPRN PRN ORAL Insomnia 07/23/18 21:00 07/30/18 20:59 Vancomycin HCl (Vanco rx to dose) 1 ea DAILY PRN MISC Per rx protocol 07/23/18 09:45 08/22/18 09:44 Vancomycin HCl 1 gm/Dextrose 275 ml @ 183.708 mls/hr Q8H IVPB 07/26/18 23:00 07/31/18 22:59 07/27/18 15:13 Allergies: Coded Allergies: No Known Allergies (Unverified , 07/23/18) Subjective 67 YO M with left leg pain. Now left leg cellulitis and stage II ulcer left ankle. Cover for Int Med-Dr Carver. S/P incision and drainage abscess left leg abscess 07/27/18. Objective Last Vital Signs Date Time Temp Pulse Resp B/P (MAP) Pulse Ox O2 Delivery O2 Flow Rate FiO2 07/27/18 16:00 98.2 60 18 128/76 (93) 96 98.2 07/27/18 13:30 Room Air 07/27/18 12:40 6 07/27/18 09:18 21 Laboratory Tests Test 07/26/18 19:55 Vancomycin Level Trough 25.6 ug/mL (5.0-12.0) H Intake and Output 07/26/18 07/27/18 19:00 07:00 Intake Total 1000.000 ml 395.000 ml Output Total 375 ml 800 ml Balance 625.000 ml -405.000 ml Intake Oral 450 ml 120 ml IV Total 550.000 ml 275.000 ml Output Urine Total 375 ml 800 ml # Bowel Movements 1 Objective General Appearance: WD/WN, no apparent distress, alert EENT: PERRL/EOMI, normal ENT inspection, TMs normal Neck: non-tender, normal alignment, supple, normal inspection Cardiovascular: normal peripheral pulses, normal rate, regularly irregular, no gallop/murmur, no JVD Respiratory/Chest: chest wall non-tender, lungs clear, normal breath sounds, no respiratory distress, no accessory muscle use Abdomen: normal bowel sounds, non tender, soft, no organomegaly, no mass Extremities: normal range of motion, non-tender Neurologic: president and chief executive officer II-XII grossly normal, no motor/sensory deficits Skin: warm/dry, other - erythema left lower leg with ulcer ankle Assessment/Plan Problem List: (1) Pressure ulcer, stage II (2) HTN (hypertension) Assessment & Plan: Continue lisinopril (3) BPH (benign prostatic hyperplasia) Assessment & Plan: Continue flomax (4) Cellulitis Assessment & Plan: left leg. Continue vanco; D/C zosyn per ID (5) Ankle abscess Assessment & Plan: S/P incision and drainage 07/27/18-see podiarty note. Tommy Grimaldo MD Jul 27, 2018 19:47
--- NOTE | 2018-07-27 20:15 | Operative Note - Dictated ---
DATE OF OPERATION: 07/27/2018 SURGEON: Janusz Gibson D.P.M. PROJECT CONTROLLER SURGEON: None. ANESTHESIOLOGIST: Paula Rodrigez M.D. TYPE OF ANESTHESIA: General with LMA. PREOPERATIVE DIAGNOSES: 1. Abscess and cellulitis, left ankle. 2. Left ankle wound. 3. Left ankle pain. POSTOPERATIVE DIAGNOSES: 1. Abscess and cellulitis, left ankle. 2. Left ankle wound. 3. Left ankle pain. PROCEDURE PERFORMED: 1. Deep incision and drainage to the level beyond fascia, left ankle. 2. Excisional debridement to the level of muscle. ESTIMATED BLOOD LOSS: 3 mL. ANTIBIOTICS: Given on the floor. COMPLICATIONS: None. SPECIMEN: Deep cultures of the wound. OPERATIVE PROCEDURE: The patient was transported to the operating room and placed on the operating table in supine position. Anesthesiologist then began anesthesia. Time-out was taken. Left lower extremity was scrubbed, prepped, and draped in an usual aseptic manner. After anesthesia check, the wound was identified and 2 portals were noted. Sanger elevator was utilized to elevate the skin with care to avoid the saphenous vein. Incision was placed. Immediate constance purulence was noted from the site. Cultures were taken. The wound was debrided and flushed. After thorough exploration of the wound was performed, no other abscesses or sinus tracts were noted. Wound appeared clean. Gloves were changed. Fresh towels were placed. The wound was packed and dressed. The patient tolerated the procedure and anesthesia well, was transported to recovery room in stable condition. No complications were noted. We will continue daily wound care for the patient. Antibiotics will be recommended by Infectious Disease pending culture results and we will follow. Janusz Gibson D.P.M. DR: DHEERAJ JOB#: [id number] CC: MAURICIO
[2018-07-27] MEDS: Norco 5mg/325mg tab ORAL PRN (21:02)
[2018-07-27] MEDS: Tamsulosin 0.4mg cap ORAL SCH (21:02)
--- NOTE | 2018-07-27 21:30 | General Progress Note ---
Assessment/Plan Assessment/Plan depressive d/o by hx provided ro/st Subjective Date patient seen: Jul 27, 2018 Neurologic/Psychiatric: Reports: anxiety, depressed, emotional problems Allergies: Coded Allergies: No Known Allergies (Unverified , 07/23/18) Objective Last 24 Hour Vital Signs Date Time Temp Pulse Resp B/P (MAP) Pulse Ox O2 Delivery O2 Flow Rate FiO2 07/27/18 20:21 102 18 Room Air 21 07/27/18 20:17 97.3 102 16 117/72 (87) 97 97.3 102 07/27/18 16:00 98.2 60 18 128/76 (93) 96 98.2 07/27/18 13:30 97.4 74 16 153/98 97 Room Air 97.4 70 07/27/18 13:15 71 15 141/91 100 Room Air 70 07/27/18 13:05 87 15 148/99 98 Room Air 87 07/27/18 12:50 98 14 135/91 99 Room Air 98 07/27/18 12:45 101 13 145/79 100 Room Air 101 07/27/18 12:44 208.0 105 16 100 07/27/18 12:40 97.8 105 16 130/90 100 Simple Mask 6 97.8 105 07/27/18 12:00 97.7 93 18 116/76 (89) 96 97.7 07/27/18 09:18 81 18 Room Air 21 07/27/18 09:00 Room Air 07/27/18 09:00 119/83 07/27/18 08:00 98.1 72 18 119/83 (95) 96 98.1 07/27/18 04:00 98.1 76 18 134/83 (100) 96 98.1 07/27/18 00:00 98.2 70 20 135/75 (95) 96 98.2 07/26/18 23:32 76 18 Room Air 21 Intake and Output 07/26/18 07/27/18 19:00 07:00 Intake Total 1000.000 ml 395.000 ml Output Total 375 ml 800 ml Balance 625.000 ml -405.000 ml Intake Oral 450 ml 120 ml IV Total 550.000 ml 275.000 ml Output Urine Total 375 ml 800 ml # Bowel Movements 1 Height (Feet): 5 Height (Inches): 11.00 Weight (Pounds): 150 General Appearance: no apparent distress, alert Neurologic: oriented x 3, responsive, depressed affect Andres Coffey MD Jul 27, 2018 21:30
[2018-07-28] MEDS: Vancomycin 1500mg IVPB SCH ×2 (00:12→12:39)
[2018-07-28 00:58] VITALS: BP 124/83
[2018-07-28 04:44] VITALS: BP 133/89
[2018-07-28 08:00] VITALS: BP 128/82
--- NOTE | 2018-07-28 08:12 | Infectious Diseases Prog Note ---
Assessment/Plan Assessment/Plan Abx: IV Vanco 07/23- Zosyn 07/23- Assessment: L ankle ulcer/cellulitis- -xray ankle: Bimalleolar soft tissue swelling. Mild degenerative changes at the ankle joint. 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 - MRI Left anckle/foot no evidence of OM 07/27/18 S/P I and D Mild leukocytosis, SP -afebrile HTN BPH chronic low back pain Plan: -Continue IV Vancomycin #5 - would treat for 7 days post I and D (End date ) - Left prescription in chart -d/c Zosyn #2 -Monitor CBC/CMP, temperatures -wound care per hospital protocol Will continue to follow along with you Subjective Allergies: Coded Allergies: No Known Allergies (Unverified , 07/23/18) Subjective SP I and D yesterday Tolerated procedure well Afebrile Pain controlled Objective Vital Signs Last 24 Hour Vital Signs Date Time Temp Pulse Resp B/P (MAP) Pulse Ox O2 Delivery O2 Flow Rate FiO2 07/28/18 04:44 97.0 67 16 133/89 (104) 98 97.0 67 07/28/18 00:58 98.2 74 18 124/83 (97) 98 98.2 74 07/27/18 21:00 Room Air 07/27/18 20:21 102 18 Room Air 21 07/27/18 20:17 97.3 102 16 117/72 (87) 97 97.3 102 07/27/18 16:00 98.2 60 18 128/76 (93) 96 98.2 07/27/18 13:30 97.4 74 16 153/98 97 Room Air 97.4 70 07/27/18 13:15 71 15 141/91 100 Room Air 70 07/27/18 13:05 87 15 148/99 98 Room Air 87 07/27/18 12:50 98 14 135/91 99 Room Air 98 07/27/18 12:45 101 13 145/79 100 Room Air 101 07/27/18 12:44 208.0 105 16 100 07/27/18 12:40 97.8 105 16 130/90 100 Simple Mask 6 97.8 105 07/27/18 12:00 97.7 93 18 116/76 (89) 96 97.7 07/27/18 09:18 81 18 Room Air 21 07/27/18 09:00 Room Air 07/27/18 09:00 119/83 Height (Feet): 5 Height (Inches): 11.00 Weight (Pounds): 150 Objective GENERAL: NAD, Alert and oriented HEENT: NCAT, MMM, EOMI CHEST: Lungs are clear to auscultation bilaterally without wheezes or rales. CARDIOVASCULAR: Regular rate. S1 and S2 are normal without murmurs, rubs, or gallops. ABDOMEN: Soft, nontender, nondistended. Positive bowel sounds. EXTREMITIES: Left ankle in bandage Laboratory Tests Test 07/27/18 21:50 Vancomycin Level Trough 22.9 ug/mL (5.0-12.0) H Current Medications Medications (Trade) Dose Ordered Sig/Anjana Route PRN Reason Start Time Stop Time Status Last Admin Dose Admin Acetaminophen (Tylenol) 650 mg Q4H PRN ORAL Mild Pain (Pain Scale 1-3) 07/23/18 10:00 08/22/18 09:59 Acetaminophen/ Hydrocodone Bitart ([place] 5/325) 1 tab Q4H PRN ORAL Moderate Pain (Pain Scale 4-6) 07/23/18 10:45 07/30/18 10:44 07/27/18 21:02 Al Hydroxide/Mg Hydroxide (Mylanta II) 30 ml Q6H PRN ORAL dyspepsia 07/23/18 10:00 08/22/18 09:59 Albuterol/ Ipratropium (Albuterol/ Ipratropium) 3 ml Q4H PRN HHN Shortness of Breath 07/23/18 10:00 07/28/18 09:59 Dextrose (Dextrose 50%) 25 ml STAT PRN IV Hypoglycemia 07/23/18 10:00 08/22/18 09:59 Dextrose (Dextrose 50%) 50 ml STAT PRN IV Hypoglycemia 07/23/18 10:00 08/22/18 09:59 Heparin Sodium (Porcine) (Heparin 5000 units/ml) 5,000 units EVERY 12 HOURS SUBQ 07/23/18 21:00 08/22/18 20:59 07/27/18 21:03 Lisinopril (Zestril) 10 mg DAILY ORAL 07/24/18 09:00 08/23/18 08:59 07/26/18 09:10 Mupirocin (Bactroban Oint) 1 applic THREE TIMES A DAY TOPIC 07/24/18 18:30 07/29/18 18:29 07/27/18 09:00 Tamsulosin HCl (Flomax) 0.4 mg BEDTIME ORAL 07/23/18 21:00 08/22/18 20:59 07/27/18 21:02 Temazepam (Restoril) 15 mg HSPRN PRN ORAL Insomnia 07/23/18 21:00 07/30/18 20:59 Vancomycin HCl (Vanco rx to dose) 1 ea DAILY PRN MISC Per rx protocol 07/23/18 09:45 08/22/18 09:44 Vancomycin HCl/ Dextrose 250 ml @ 125 mls/hr Q12H IVPB 07/28/18 00:00 08/02/18 00:00 07/28/18 00:12 Be Israel MD Jul 28, 2018 08:12
[2018-07-28] MEDS: Lisinopril 10mg tab ORAL SCH (08:43)
[2018-07-28] MEDS: Norco 5mg/325mg tab ORAL PRN (08:43)
[2018-07-28] MEDS: Heparin 5000 units/ml inj SUBQ SCH (08:44)
[2018-07-28 12:00] VITALS: BP 130/75
--- NOTE | 2018-07-28 12:36 | Podiatric Progress Note ---
Assessment/Plan Patient Alex Bass is a 67 year old male who was admitted on Jul 23, 2018 at 07:25 with Assessment/Plan A/ 1) Abscess left ankle - s/p I&D 2) Cellulitis LLE - improved 3) Left ankle wound 4) Left ankle pain P/ 1) Patient seen by ID and Rx for outpatient abx given 2) Will require daily home health for dressing changes. product manager e commerce working to secure one. Orders for home health dressing changes entered. 3) Wrote Rx for [place] during dressing changes 4) WB to tolerance with walker 5) Outpatient follow up at [facility] this Tuesday 6) Advised on showering and keeping dressings dry 7) D/W Dr Grimaldo, cleared to d/c from his standpoint. Subjective Allergies: Coded Allergies: No Known Allergies (Unverified , 07/23/18) Subjective Patient states dressing change this AM was painful. Wants to go home. Objective Exam Last 24 Hour Vital Signs Date Time Temp Pulse Resp B/P (MAP) Pulse Ox O2 Delivery O2 Flow Rate FiO2 07/28/18 12:00 98.1 75 21 130/75 (93) 99 98.1 07/28/18 09:00 Room Air 07/28/18 08:43 128/82 07/28/18 08:00 98.1 76 22 128/82 (97) 97 98.1 07/28/18 04:44 97.0 67 16 133/89 (104) 98 97.0 67 07/28/18 00:58 98.2 74 18 124/83 (97) 98 98.2 74 07/27/18 21:00 Room Air 07/27/18 20:21 102 18 Room Air 21 07/27/18 20:17 97.3 102 16 117/72 (87) 97 97.3 102 07/27/18 16:00 98.2 60 18 128/76 (93) 96 98.2 07/27/18 13:30 97.4 74 16 153/98 97 Room Air 97.4 70 07/27/18 13:15 71 15 141/91 100 Room Air 70 07/27/18 13:05 87 15 148/99 98 Room Air 87 07/27/18 12:50 98 14 135/91 99 Room Air 98 07/27/18 12:45 101 13 145/79 100 Room Air 101 07/27/18 12:44 208.0 105 16 100 07/27/18 12:40 97.8 105 16 130/90 100 Simple Mask 6 97.8 105 Laboratory Tests Test 07/27/18 21:50 Vancomycin Level Trough 22.9 ug/mL (5.0-12.0) H Microbiology Date/Time Source Procedure Growth Status 07/23/18 10:00 Nasal Nares Nasopharyngeal Culture - Final Usual Skin [place] Complete 07/27/18 13:20 Foot Left Gram Stain Pending Resulted 07/27/18 13:20 Aerobic Culture - Preliminary Staphylococcus Aureus Resulted 07/27/18 13:20 Foot Left Anaerobic Culture Pending Resulted Dermatological Dermatological Narrative Edema in LLE reduced. Color improved. No strike through in dressings. Januzs Gibson DPM Jul 28, 2018 12:36
--- NOTE | 2018-07-28 13:20 | Cardiac Electrophysiology PN ---
Assessment/Plan Assessment/Plan 1. Hypertension. Continue lisinopril 10 mg daily. 2. Benign prostatic hypertrophy. On Flomax. 3. Left ankle ulcer. Tolerated the procedure well. LENNY planning alix LAND RN Subjective Subjective Mild discomfort at ankle wound debridement site. No CP or SOB. Being DCed today on PO bx Objective Last 24 Hour Vital Signs Date Time Temp Pulse Resp B/P (MAP) Pulse Ox O2 Delivery O2 Flow Rate FiO2 07/28/18 12:00 98.1 75 21 130/75 (93) 99 98.1 07/28/18 09:00 Room Air 07/28/18 08:43 128/82 07/28/18 08:00 98.1 76 22 128/82 (97) 97 98.1 07/28/18 04:44 97.0 67 16 133/89 (104) 98 97.0 67 07/28/18 00:58 98.2 74 18 124/83 (97) 98 98.2 74 07/27/18 21:00 Room Air 07/27/18 20:21 102 18 Room Air 21 07/27/18 20:17 97.3 102 16 117/72 (87) 97 97.3 102 07/27/18 16:00 98.2 60 18 128/76 (93) 96 98.2 07/27/18 13:30 97.4 74 16 153/98 97 Room Air 97.4 70 Intake and Output 07/27/18 07/28/18 19:00 07:00 Intake Total 1263.708 ml Output Total 610 ml 500 ml Balance 653.708 ml -500 ml Intake Oral 480 ml IV Total 783.708 ml Output Urine Total 600 ml 500 ml Estimated Blood Loss 10 ml # Voids 1 3 # Bowel Movements 1 Laboratory Tests Test 07/27/18 21:50 Vancomycin Level Trough 22.9 ug/mL (5.0-12.0) H Microbiology Date/Time Source Procedure Growth Status 07/27/18 13:20 Foot Left Gram Stain Pending Resulted 07/27/18 13:20 Aerobic Culture - Preliminary Staphylococcus Aureus Resulted 07/27/18 13:20 Foot Left Anaerobic Culture Pending Resulted Objective HEAD AND NECK: Shows no JVD. LUNGS: Clear. CARDIOVASCULAR: Shows regular S1 and S2 with no gallop or murmur. ABDOMEN: Soft and nontender. EXTREMITIES: S/P Left ankle debridement Albin Shelton MD Jul 28, 2018 13:20
--- NOTE | 2018-07-28 14:16 | 48 Hour Post Anesthesia Eval ---
Post Anesthesia Evaluation Procedure: Left ankle I&D Date of Evaluation: Jul 28, 2018 Time of Evaluation: 14:15 Blood Pressure Systolic: 136 0: 72 Pulse Rate: 68 Respiratory Rate: 20 Temperature (Fahrenheit): 97.8 O2 Sat by Pulse Oximetry: 98 Airway: patent Nausea: No Vomiting: No Pain Intensity: 2 Hydration Status: adequate Cardiopulmonary Status: stable Mental Status/LOC: patient returned to baseline Follow-up Care/Observations: n/a Post-Anesthesia Complications: none Follow-up care needed: N/A Barry Green MD Jul 28, 2018 14:16
--- NOTE | 2018-07-28 14:22 | General Progress Note ---
Assessment/Plan Assessment/Plan depressive d/o by hx provided ro/st Subjective Date patient seen: Jul 28, 2018 Neurologic/Psychiatric: Reports: anxiety Allergies: Coded Allergies: No Known Allergies (Unverified , 07/23/18) Subjective the pt was worried about his wound c/o pain spoke with dr. camarena Objective Last 24 Hour Vital Signs Date Time Temp Pulse Resp B/P (MAP) Pulse Ox O2 Delivery O2 Flow Rate FiO2 07/28/18 14:16 208.0 68 20 98 07/28/18 12:00 98.1 75 21 130/75 (93) 99 98.1 07/28/18 09:00 Room Air 07/28/18 08:43 128/82 07/28/18 08:00 98.1 76 22 128/82 (97) 97 98.1 07/28/18 04:44 97.0 67 16 133/89 (104) 98 97.0 67 07/28/18 00:58 98.2 74 18 124/83 (97) 98 98.2 74 07/27/18 21:00 Room Air 07/27/18 20:21 102 18 Room Air 21 07/27/18 20:17 97.3 102 16 117/72 (87) 97 97.3 102 07/27/18 16:00 98.2 60 18 128/76 (93) 96 98.2 Intake and Output 07/27/18 07/28/18 19:00 07:00 Intake Total 1263.708 ml Output Total 610 ml 500 ml Balance 653.708 ml -500 ml Intake Oral 480 ml IV Total 783.708 ml Output Urine Total 600 ml 500 ml Estimated Blood Loss 10 ml # Voids 1 3 # Bowel Movements 1 Laboratory Tests 07/27/18 21:50: Vancomycin Level Trough 22.9H Height (Feet): 5 Height (Inches): 11.00 Weight (Pounds): 150 General Appearance: no apparent distress, alert Neurologic: oriented x 3, responsive, depressed affect Andres Coffey MD Jul 28, 2018 14:22
--- NOTE | 2018-07-28 14:58 | Pulmonology Progress Note ---
Assessment/Plan Problems: (1) Cellulitis (2) HTN (hypertension) (3) BPH (benign prostatic hyperplasia) (4) Pressure ulcer, stage II Assessment/Plan no new complains doesn't want to go to a rehab getting better wound care iv abx check cultures symptomatic treatment check electrolytes Subjective ROS Limited/Unobtainable: No Allergies: Coded Allergies: No Known Allergies (Unverified , 07/23/18) Objective Last 24 Hour Vital Signs Date Time Temp Pulse Resp B/P (MAP) Pulse Ox O2 Delivery O2 Flow Rate FiO2 07/28/18 14:16 208.0 68 20 98 07/28/18 12:00 98.1 75 21 130/75 (93) 99 98.1 07/28/18 09:00 Room Air 07/28/18 08:43 128/82 07/28/18 08:00 98.1 76 22 128/82 (97) 97 98.1 07/28/18 04:44 97.0 67 16 133/89 (104) 98 97.0 67 07/28/18 00:58 98.2 74 18 124/83 (97) 98 98.2 74 07/27/18 21:00 Room Air 07/27/18 20:21 102 18 Room Air 21 07/27/18 20:17 97.3 102 16 117/72 (87) 97 97.3 102 07/27/18 16:00 98.2 60 18 128/76 (93) 96 98.2 Intake and Output 07/27/18 07/28/18 19:00 07:00 Intake Total 1263.708 ml Output Total 610 ml 500 ml Balance 653.708 ml -500 ml Intake Oral 480 ml IV Total 783.708 ml Output Urine Total 600 ml 500 ml Estimated Blood Loss 10 ml # Voids 1 3 # Bowel Movements 1 General Appearance: WD/WN HEENT: normocephalic, atraumatic Respiratory/Chest: chest wall non-tender, lungs clear Cardiovascular: normal peripheral pulses, normal rate Abdomen: normal bowel sounds, soft, non tender Genitourinary: normal external genitalia Skin: no rash Neurologic/Psychiatric: ocean biologist II-XII grossly normal Lymphatic: no neck adenopathy Microbiology Date/Time Source Procedure Growth Status 07/27/18 13:20 Wound AFB Specimen Processing Tissue - Final Resulted 07/27/18 13:20 Wound Acid Fast Bacilli Smear - Final Resulted 07/27/18 13:20 Wound Acid Fast Bacilli Culture Pending Resulted 07/27/18 13:20 Foot Left Gram Stain - Final Resulted 07/27/18 13:20 Aerobic Culture - Preliminary Staphylococcus Aureus Resulted 07/27/18 13:20 Foot Left Anaerobic Culture Pending Resulted Laboratory Tests 07/27/18 21:50: Vancomycin Level Trough 22.9H Current Medications Medications (Trade) Dose Ordered Sig/Anjana Route PRN Reason Start Time Stop Time Status Last Admin Dose Admin Acetaminophen (Tylenol) 650 mg Q4H PRN ORAL Mild Pain (Pain Scale 1-3) 07/23/18 10:00 08/22/18 09:59 Acetaminophen/ Hydrocodone Bitart ([place] 5/325) 1 tab Q4H PRN ORAL Moderate Pain (Pain Scale 4-6) 07/23/18 10:45 07/30/18 10:44 07/28/18 08:43 Al Hydroxide/Mg Hydroxide (Mylanta II) 30 ml Q6H PRN ORAL dyspepsia 07/23/18 10:00 08/22/18 09:59 Dextrose (Dextrose 50%) 25 ml STAT PRN IV Hypoglycemia 07/23/18 10:00 08/22/18 09:59 Dextrose (Dextrose 50%) 50 ml STAT PRN IV Hypoglycemia 07/23/18 10:00 08/22/18 09:59 Heparin Sodium (Porcine) (Heparin 5000 units/ml) 5,000 units EVERY 12 HOURS SUBQ 07/23/18 21:00 08/22/18 20:59 07/28/18 08:44 Lisinopril (Zestril) 10 mg DAILY ORAL 07/24/18 09:00 08/23/18 08:59 07/28/18 08:43 Tamsulosin HCl (Flomax) 0.4 mg BEDTIME ORAL 07/23/18 21:00 08/22/18 20:59 07/27/18 21:02 Temazepam (Restoril) 15 mg HSPRN PRN ORAL Insomnia 07/23/18 21:00 07/30/18 20:59 Vancomycin HCl (Vanco rx to dose) 1 ea DAILY PRN MISC Per rx protocol 07/23/18 09:45 08/22/18 09:44 Vancomycin HCl/ Dextrose 250 ml @ 125 mls/hr Q12H IVPB 07/28/18 00:00 08/02/18 00:00 07/28/18 12:39 Katerina Guadarrama MD Jul 28, 2018 14:58
--- NOTE | 2018-07-28 15:28 | Cardiology Report ---
APPROVED REPORT EKG Measurement Heart [id number] OK [id number] Normal sinus rhythm with sinus arrhythmia Minimal voltage criteria for LVH, may be normal variant Borderline ECG
[2018-07-28] MEDS ORDERED: NORCO 10-325 T1 EACH ORAL (15:55)
[2018-07-28] MEDS ORDERED: BACTRIM DS TAB1 EAC1 ORAL (15:56)
[2018-07-28 16:00] VITALS: BP 127/80
--- NOTE | 2018-07-28 16:29 | Discharge Summary ---
Discharge Summary Hospital Course Date of Admission Jul 23, 2018 at 07:25 Date of Discharge Admitting Diagnosis HPI Alex Bass is a 67 year old male who was admitted on Jul 23, 2018 at 07:25 for Cellulitis Left Foot/Osteomyelitis Hospital Course Job: [id number] Last 24 Hour Vital Signs Date Time Temp Pulse Resp B/P (MAP) Pulse Ox O2 Delivery O2 Flow Rate FiO2 07/28/18 14:16 208.0 68 20 98 07/28/18 12:00 98.1 75 21 130/75 (93) 99 98.1 07/28/18 09:00 Room Air 07/28/18 08:43 128/82 07/28/18 08:00 98.1 76 22 128/82 (97) 97 98.1 07/28/18 04:44 97.0 67 16 133/89 (104) 98 97.0 67 07/28/18 00:58 98.2 74 18 124/83 (97) 98 98.2 74 07/27/18 21:00 Room Air 07/27/18 20:21 102 18 Room Air 21 07/27/18 20:17 97.3 102 16 117/72 (87) 97 97.3 102 General: No acute distress, awake and alert HEENT: NCAT, sclera anicteric, PERRL, EOMI. Neck: Supple, no significant jugular venous distention, Lungs: Good inspiratory effort, clear to auscultation bilaterally, no Wheeze or Rales. Heart: Regular rate and rhythm, normal S1/S2, no murmurs. Abdomen: soft, nontender, nondistended. Normoactive bowel sounds. / Rectal: Refused and deferred. Extremities: No Cyanosis , clubbing or edema. Lft foot dressing. Neuro: A&O x 3, Able to move all extremities Skin: warm, no rashes or lesions Psych: Normal mood and affect Discharge Discharge Disposition Patient was discharged to Home with Home Health(06) Checo Carver MD Jul 28, 2018 16:28
--- NOTE | 2018-07-29 04:30 | Discharge Summary ---
DATE OF ADMISSION: 07/23/2018 DATE OF DISCHARGE: 07/28/2018 HISTORY OF PRESENT ILLNESS: This is a 67-year-old gentleman with past medical history significant for chronic lower back pain, hypertension, and BPH, who has presented to the hospital complaining about left leg swelling and ulceration. The patient stated that it has been going on for a while. The patient presented to the [facility] emergency room and was found to have ulceration of the left ankle and noted to have erythema and swelling on the left lower extremity. The patient subsequently was transferred to the [facility] for further evaluation and antibiotic therapy. Shortly after initial evaluation in the hospital, the patient was consulted with Dr. Be Israel from Infectious Disease, Dr. Janusz Gibson from Podiatry, Dr. Albin Shelton from Cardiology, and Dr. Guadarrama from Pulmonary Critical Care. The patient underwent incision and drainage of the abscess of the left ankle on 07/27/[address] Gibson with the incision and debridement at the level of the muscle. The patient tolerated the procedure well. Postoperatively, was on Zosyn and vancomycin and subsequently switched to vancomycin and he was discharged home today to be followed as outpatient with my office as well as Dr. Gibson. FINAL DIAGNOSES: 1. Left ankle cellulitis and ulcer with bimalleolar soft tissue swelling. 2. Methicillin-resistant Staphylococcus aureus wound infection. 3. Hypertension. 4. Benign prostatic hypertrophy. 5. Chronic lower back pain. MEDICATION ON DISCHARGE: Continue discharge medication list. ACTIVITY: As tolerated. DIET: Cardiac diet. FOLLOWUP: The patient was advised to follow up my office within one week and continue wound care. The patient will follow up with the home health for wound care and physical therapy. It was noted that the MRI of the left ankle on 02/27/2018, no evidence of osteomyelitis, diffuse distal soft tissue edema. Checo Carver M.D. DR: NAHEED JOB#: [id number] CC:
== END 2018-07-28 16:40 | disposition home health service (06) | DRG 581 ==
LOC: 4E 07:25
PROC: 0K9 Muscles, Drainage (ICD-10-PCS; principal; 2018-07-27 12:00)
DX: L02.416 Cutaneous abscess of left lower limb (principal); L89.522 Pressure ulcer of left ankle, stage 2; L03.116 Cellulitis of left lower limb; B95.62 Methicillin resistant Staphylococcus aureus infection as the cause of diseases classified elsewhere; N40.0 Benign prostatic hyperplasia without lower urinary tract symptoms; G89.29 Other chronic pain; M54.5 Low back pain; Z59.0 Homelessness; F17.200 Nicotine dependence, unspecified, uncomplicated
CPT/HCPCS: 36415; 71045; 80048; 80053; 80061; 80202; 83036; 83735; 84153; 84439; 84443; 84481; 85025; 85610; 85651; 85730; 86140; 87070; 87075; 87081; 87116; 87181; 87205; 93005; 93306; 93970; 94003; 94150; 94664; A9585; J2250

== ENCOUNTER 2018-08-01 15:18 | Outpatient (RCR) | payer MEDICARE, MEDICAID ==
[~2018-08-01 15:18] MED LIST: BACTRIM DS TAB1 EAC1 ORAL; FLOMAX0.4 MG ORAL; HYDROCHLOROTH12.5 M2 ORAL; LISINOPRIL-HCT1 EACH ORAL; NORCO 10-325 T1 EACH ORAL; VANCOMYCIN1 GM/200 M IV
== END 2018-08-20 | disposition home or self-care (01) ==
LOC: WCC 15:18
DX: L03.116 Cellulitis of left lower limb (principal); M71.072 Abscess of bursa, left ankle and foot; L97.323 Non-pressure chronic ulcer of left ankle with necrosis of muscle; L97.823 Non-pressure chronic ulcer of other part of left lower leg with necrosis of muscle; I11.9 Hypertensive heart disease without heart failure
CPT/HCPCS: 11043

== ENCOUNTER 2018-08-22 14:30 | Outpatient (RCR) | payer MEDICARE, MEDICAID | END 2018-09-20 | disposition home or self-care (01) | LOC: WCC 14:30 | DX: L03.116 Cellulitis of left lower limb (principal); M71.072 Abscess of bursa, left ankle and foot; L97.323 Non-pressure chronic ulcer of left ankle with necrosis of muscle; L97.823 Non-pressure chronic ulcer of other part of left lower leg with necrosis of muscle; I11.9 Hypertensive heart disease without heart failure | CPT/HCPCS: G0463 ==